=== PATIENT | female | born 1970 | race Caucasian/White ===

== ENCOUNTER → 2019-10-24 09:35 | Outpatient (CLI) | payer OTHER, SELFPAY ==
[2019-10-27 07:16] LABS: COVID19 Sendout Not Detected (Not Detected)
== END ==
PROVIDERS: PCP Internal Medicine Geriatric Medicine; Visit Provider Family Medicine
DX: R05 Cough (principal)
CPT/HCPCS: 87635

== ENCOUNTER 2020-09-25 22:04 | Emergency (ER) | payer OTHER, MEDICAID, SELFPAY ==
--- NOTE | 2020-09-25 22:10 | DI.RAD.S_ITS ---
PROCEDURE: XR CHEST 2V INDICATIONS: shortness of breath TECHNIQUE: 2 views of the chest were acquired. COMPARISON: [facility], , CHEST 1 VIEW, 11/05/2017, 21:10. FINDINGS: Surgical changes and devices: None. Lungs and pleura: Mild right basilar atelectasis. Lungs otherwise clear. No pleural effusions or pneumothorax. Mediastinum: Mediastinal contours are normal. Heart size is normal. Bones and chest wall: No suspicious bony abnormalities. Soft tissues appear unremarkable. IMPRESSION: Mild right basilar atelectasis. Comment: Final report is concordant with preliminary interpretation provided by [facility]. Dictated by: Agapito Marquis M.D. on 09/26/2020 at 6:21 Approved by: Agapito Marquis M.D. on 09/26/2020 at 6:22
[2020-09-25 22:11] VITALS: BP 194/107; PULSE 94; RESP 24; TEMP 36.3; O2SAT 97
[2020-09-25 22:46] LABS: COVID19 -Nasal RAPID Negative (Negative)
[2020-09-25 23:00] LABS: Add Manual Diff / Slide Review NO; Basophils Absolute Auto 100 /uL (0-100); Basophils Percent Auto 0.9 % (0-2); Eosinophils Absolute Auto 300 /uL (0-450); Eosinophils Percent Auto 3.1 % (2-4); Hematocrit 40.5 % (36-46); Hemoglobin 13.2 g/dL (12.0-16.0); Lymphocytes Absolute Auto 2500 /uL (1100-4500); Lymphocytes Percent Auto 26.2 % (25-40); Mean Corpuscular HGB Conc 32.6 % (30-36); Mean Corpuscular Hemoglobin 27.3 PG (26-34); Mean Corpuscular Volume 83.7 fL (80-100); Monocytes Absolute Auto 700 /uL (0-900); Monocytes Percent Auto 7.3 % (3-14); Neutrophils Absolute Auto 5900 /uL (1500-7000); Neutrophils Percent Auto 62.5 % (50-75); Platelet Count 320 X10^3/uL (150-400); Red Blood Cell Count 4.84 X10^6/uL (4.0-5.2); Red Cell Distribution Width 15.5 % (11.6-14.8); White Blood Cell Count 9.4 X10^3/uL (4.5-11.0)
[2020-09-25 23:08] VITALS: PULSE 79; RESP 16; O2SAT 100
[2020-09-25 23:08] LABS: Alanine Aminotransferase 20 IU/L (<35); Albumin 4.4 g/dL (3.5-5.0); Albumin Globulin Ratio 1.4 (1.0-2.8); Alkaline Phosphatase 143 U/L (38-126); Aspartate Aminotransferase 19 IU/L (14-36); Bilirubin Total 0.3 mg/dL (0.2-1.3); Blood Urea Nitrogen 18 mg/dL (7-17); Calcium 9.4 mg/dL (8.4-10.2); Carbon Dioxide 29 mmol/L (22-32); Chloride 106 mmol/L (98-107); Estimated Glomerular Filt Rate > 60.0 mL/min (>60); Globulin 3.2 g/dL (1.7-4.1); Glucose 127 mg/dL (70-100); HEMOLYSIS < 15 (0-50); Lactate (Lactic Acid) 1.3 mmol/L (0.7-2.1); Potassium 3.8 mmol/L (3.4-5.1); Sodium 140 mmol/L (137-145); Total Protein 7.6 g/dL (6.3-8.2)
[2020-09-25 23:30] VITALS: PULSE 79; RESP 30; O2SAT 96
[2020-09-25 23:31] LABS: Appearance Urine UA CLEAR; Bilirubin Urine UA NEGATIVE (NEGATIVE); Color Urine UA YELLOW; Glucose Urine UA 2+ g/dL (Negative); Ketones Urine UA NEGATIVE (NEGATIVE); Leukocyte Esterase Urine UA NEGATIVE (NEGATIVE); Nitrite Urine UA NEGATIVE (Negative); Occult Blood Urine UA NEGATIVE (Negative); Protein Urine UA NEGATIVE (Negative); Specific Gravity Urine UA 1.015 (1.000-1.035); Urobilinogen Urine UA 0.2 E.U./dL (0.2)
[2020-09-25 23:36] LABS: Bacteria Urine Many (>30); RBC Urine 0-1/HPF (0-5/HPF); Squamous Epithelial Cell Urine 1-5 /HPF (0-5/HPF); WBC Urine 0-1/HPF (0-5/HPF)
[2020-09-25 23:37] LABS: Culture Indicated Urine Cult Not Indicated
--- NOTE | 2020-09-25 23:55 | ED_ITS ---
HPI - SOB/Dyspnea General Chief Complaint: Shortness of Breath/Dyspnea Stated Complaint: COUGH SOB BODY ACHES HEADACHE RASH Time Seen by Provider: 09/25/20 23:35 Source: patient Mode of arrival: Ambulatory Limitations: no limitations History of Present Illness HPI Narrative: This is a 50-year-old female comes emergency department with complaint of a rash that started 2 days ago. Patient states this is not atypica l she has a history of Sjogren's and will get rashes intermittently. This evening she started feeling under the weather. She felt cold and achy she had joint pain all over. Developed headache and a cough. Patient states she has not had a productive cough. She states this feels different than her typical asthma. She does have some chest discomfort anteriorly that does not radiate. She states this all started about 7:00 a.m. this evening. Patient does feel little short of breath. She denies any nausea no vomiting. She has had some mild swelling bilateral lower extremities. No abdominal pain. 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 She states she has had tonsillectomy, adenoids, hysterectomy and cholecystectomy. Her PCP is Dr. 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 Related Data Home Medications Medication Instructions Recorded Confirmed ASCORBIC ACID (VITAMIN C) #0 02/13/13 10/24/19 cholecalciferol (vitamin D3) 1,000 unit PO QDAY #0 02/13/13 10/24/19 [Vitamin D3] cetirizine 10 mg PO QDAY #0 08/26/17 10/24/19 meloxicam [Mobic] 15 mg PO QAM #0 08/26/17 10/24/19 folic acid 10 mg PO QDAY #0 08/27/17 10/24/19 naproxen sodium [Aleve] 1 tab PO BID #0 08/27/17 10/24/19 omega [id number]-fish oil [Fish Oil] 1,000 mg PO QDAY #0 08/27/17 10/24/19 propranolol 80 mg PO HS #0 08/27/17 10/24/19 budesonide 1 mg/2 mL suspension 1 mg INHALATION DAILY 10/24/19 10/24/19 for nebulization furosemide 40 mg tablet 40 mg PO BID 10/24/19 10/24/19 gabapentin 300 mg capsule 300 mg PO BID 10/24/19 10/24/19 leflunomide 10 mg tablet 10 mg PO DAILY 10/24/19 10/24/19 metformin 500 mg tablet 1,000 mg PO BID tab 10/24/19 10/24/19 montelukast 10 mg tablet 10 mg PO BEDTIME 10/24/19 10/24/19 pilocarpine HCl 5 mg tablet 5 mg PO TID 10/24/19 10/24/19 pramipexole 0.5 mg tablet 0.5 mg PO DAILY 10/24/19 10/24/19 Previous Rx's Medication Instructions Recorded ALBUTEROL SULFATE (PROAIR HFA) 2 puff INH Q4HP #2 06/27/11 codeine-guaifenesin [Guaifenesin 5 ml PO Q4HP PRN #120 ml 08/29/17 AC] prednisone 60 mg PO QDAY #60 tab 08/29/17 ranitidine HCl 150 mg PO BIDP PRN #60 tab 08/29/17 prednisone 20 mg tablet See Rx Instructions PO DAILY #30 10/25/19 tab codeine-guaifenesin 10 ml PO Q6H PRN #118 ml 09/26/20 prednisone 50 mg PO DAILY #4 tab 09/26/20 Allergies Allergy/AdvReac Type Severity Reaction Status Date / Time lisinopril [LISINOPRIL] Allergy Severe Anaphylaxis Verified 09/26/20 00:49 methotrexate [METHOTREXATE] Allergy Intermediate NAUSEA AND Unverified 10/24/19 09:11 VOMITING adhesive [ADHESIVE] Allergy Unknown ALLERGY TO Unverified 10/24/19 09:11 TAPE erythromycin base Allergy Unknown Unverified 10/24/19 09:11 [ERYTHROMYCIN BASE] latex [LATEX] Allergy Unknown Unverified 10/24/19 09:11 morphine [MORPHINE] Allergy Unknown HIVES Unverified 10/24/19 09:11 Penicillins [PENICILLINS] Allergy Unknown Unverified 10/24/19 09:11 Sulfa (Sulfonamide Allergy Unknown Unverified 10/24/19 09:11 Antibiotics) [SULFA (SULFONAMIDE ANTIBIOTICS)] tetracycline [TETRACYCLINE] Allergy Unknown Unverified 10/24/19 09:11 venom-honey bee Allergy Unknown Unverified 10/24/19 09:11 [BEE VENOM (HONEY BEE)] Review of Systems Review of Systems ROS Unobtainable: All systems reviewed & are unremarkable except as noted in HPI and below Patient History Social History Smoking Status: Former smoker Smoking Status: Former smoker Exam Narrative Exam Narrative: GEN: Obese, well-appearing female, alert and oriented x 3, patient appears to be in mild distress. HEENT: Atraumatic, pupils are equal round reactive to light, extraocular movements are intact. HEART: Regular rate and rhythm without murmur, clicks, rubs. No edema bilateral lower extremities. No JVD. LUNGS:Lungs clear to auscultation, no wheezes, rales, crackles, chest moves symmetrically, no tachypnea. Patient does have a dry cough throughout examination. ABD:bowel sounds normal, soft, non-tender, no guarding, rebound, rigidity, no masses noted, no hepatosplenomegaly :No CVA tenderness MSCL: Non-tender, no muscle atrophy, muscles strength 5/5 upper and lower extremities, full range of motion, normal gait NEURO:CN 2-12 intact, sensation normal SKIN: No rash, erythema other cheek skin changes noted. Initial Vital Signs Initial Vital Signs: Vital Signs Temperature 97.4 F L 09/25/20 22:11 Pulse Rate 94 H 09/25/20 22:11 Respiratory Rate 24 09/25/20 22:11 Blood Pressure 194/107 H 09/25/20 22:11 Pulse Oximetry 97 09/25/20 22:11 Course Orders Ordered: ED Orders 09/25/20 22:10 XR chest 2V Stat EKG-12 Lead Stat Measure peak expiratory flow ONCE RT Consult Eval and Treat Now 09/25/20 22:25 COVID19 Stat 09/25/20 22:43 Complete Blood Count AUTO DIFF Stat Comprehensive Metabolic Panel Stat Lactate (Lactic Acid) Stat 09/25/20 23:00 Influenza A & B (PCR) Stat 09/25/20 23:10 Urinalysis and Microscopic Stat 09/26/20 00:15 Troponin & CK Cardiac Panel Stat 09/26/20 00:41 NT-proBNP (BNP-Adult 18+) Stat Discontinued Medications Acetaminophen (Acetaminophen 325 Mg Tablet) 975 mg PO NOW ONE Stop: 09/26/20 00:16 Last Admin: 09/26/20 00:23 Dose: 975 mg Documented by: JOE Acetaminophen/Codeine Phosphate (Codeine/Apap 30/300 Prepack) 1 bottle MISC SEEINSTR ONE Stop: 09/26/20 01:35 Last Admin: 09/26/20 01:43 Dose: 1 bottle Documented by: JOE Albuterol (Albuterol Hfa Mdi 60 Puff/8 Gm Inhaler) 2 puff INH NOW ONE Stop: 09/26/20 00:16 Last Admin: 09/26/20 00:23 Dose: 2 puff Documented by: JOE Methylprednisolone (Methylprednisolone 125 Mg/2 Ml Vial) 125 mg IV NOW ONE Stop: 09/26/20 00:42 Last Admin: 09/26/20 00:48 Dose: 125 mg Documented by: JOE Reevaluation(s) Reevaluation #1: patient has some mild improvement after albuterol. Time: 01:38 Vital Signs Vital signs: Vital Signs - 8 hr 09/25/20 22:11 09/25/20 23:08 09/25/20 23:30 Temperature 97.4 F L Pulse Rate 94 H 79 79 Respiratory Rate 24 16 30 H Blood Pressure 194/107 H Pulse Oximetry 97 100 96 09/26/20 00:00 09/26/20 00:30 09/26/20 01:00 Temperature Pulse Rate 74 71 75 Respiratory Rate 27 H 35 H 26 H Blood Pressure Pulse Oximetry 97 94 96 09/26/20 01:20 09/26/20 01:47 Temperature Pulse Rate 71 62 Respiratory Rate 21 22 Blood Pressure 140/82 133/59 L Pulse Oximetry 95 95 MDM - SOB/Dyspnea Lab Data Attestation: I reviewed the patient's lab results. Result diagrams: 09/25/20 22:43 09/25/20 22:43 Labs: Lab Results 09/25/20 09/25/20 09/25/20 Range/Units 22:25 22:43 22:43 WBC 9.4 (4.5-11.0) X10^3/uL RBC 4.84 (4.0-5.2) X10^6/uL Hgb 13.2 (12.0-16.0) g/dL Hct 40.5 (36-46) % MCV 83.7 (80-100) fL MCH 27.3 (26-34) PG MCHC 32.6 (30-36) % RDW 15.5 H (11.6-14.8) % Plt Count 320 (150-400) X10^3/uL Neut % (Auto) 62.5 (50-75) % Lymph % (Auto) 26.2 (25-40) % [place] % (Auto) 7.3 (3-14) % Eos % (Auto) 3.1 (2-4) % Baso % (Auto) 0.9 (0-2) % Neut # (Auto) 5900 (1646-2198) /uL Lymph # (Auto) 2500 (7684-9870) /uL [place] # (Auto) 700 (0-900) /uL Eos # (Auto) 300 (0-450) /uL Baso # (Auto) 100 (0-100) /uL Sodium 140 (137-145) mmol/L Potassium 3.8 (3.4-5.1) mmol/L Chloride 106 (98-107) mmol/L Carbon Dioxide 29 (22-32) mmol/L BUN 18 H (7-17) mg/dL Creatinine 0.62 (0.52-1.04) mg/dL Estimated GFR > 60.0 (>60) mL/min BUN/Creatinine Ratio 29.0 H (6-22) Glucose 127 H (70-100) mg/dL Lactate (0.7-2.1) mmol/L Calcium 9.4 (8.4-10.2) mg/dL Total Bilirubin 0.3 (0.2-1.3) mg/dL AST 19 (14-36) IU/L ALT 20 (<35) IU/L Alkaline Phosphatase 143 H (38-126) U/L Total Creatine Kinase (30-135) U/L CK-MB (CK-2) CK-MB (CK-2) Rel Index Troponin I (0.01-0.034) ng/mL NT-Pro-B Natriuret Pep (<125) pg/mL Total Protein 7.6 (6.3-8.2) g/dL Albumin 4.4 (3.5-5.0) g/dL Globulin 3.2 (1.7-4.1) g/dL Albumin/Globulin Ratio 1.4 (1.0-2.8) Urine Color Urine Appearance Urine pH (4.5-8.0) Ur Specific [place] (1.000-1.035) Urine Protein (Negative) Urine Glucose (UA) (Negative) g/dL Urine Ketones (NEGATIVE) Urine Occult Blood (Negative) Urine Nitrate (Negative) Urine Bilirubin (NEGATIVE) Urine Urobilinogen (0.2) E.U./dL Ur Leukocyte Esterase (NEGATIVE) Urine RBC (0-5/HPF) Urine WBC (0-5/HPF) Ur Squamous Epith Cells (0-5/HPF) Urine Bacteria (None) Ur Culture Indicated? SARS-CoV-2 (PCR) Negative (Negative) Influenza A (RT-PCR) (NEGATIVE) Influenza B (RT-PCR) (NEGATIVE) 09/25/20 09/25/20 09/25/20 Range/Units 22:43 22:43 22:43 WBC (4.5-11.0) X10^3/uL RBC (4.0-5.2) X10^6/uL Hgb (12.0-16.0) g/dL Hct (36-46) % MCV (80-100) fL MCH (26-34) PG MCHC (30-36) % RDW (11.6-14.8) % Plt Count (150-400) X10^3/uL Neut % (Auto) (50-75) % Lymph % (Auto) (25-40) % [place] % (Auto) (3-14) % Eos % (Auto) (2-4) % Baso % (Auto) (0-2) % Neut # (Auto) (4139-1692) /uL Lymph # (Auto) (1829-6073) /uL [place] # (Auto) (0-900) /uL Eos # (Auto) (0-450) /uL Baso # (Auto) (0-100) /uL Sodium (137-145) mmol/L Potassium (3.4-5.1) mmol/L Chloride (98-107) mmol/L Carbon Dioxide (22-32) mmol/L BUN (7-17) mg/dL Creatinine (0.52-1.04) mg/dL Estimated GFR (>60) mL/min BUN/Creatinine Ratio (6-22) Glucose (70-100) mg/dL Lactate 1.3 (0.7-2.1) mmol/L Calcium (8.4-10.2) mg/dL Total Bilirubin (0.2-1.3) mg/dL AST (14-36) IU/L ALT (<35) IU/L Alkaline Phosphatase (38-126) U/L Total Creatine Kinase 49 (30-135) U/L CK-MB (CK-2) TNP CK-MB (CK-2) Rel Index TNP Troponin I < 0.012 (0.01-0.034) ng/mL NT-Pro-B Natriuret Pep 58 (<125) pg/mL Total Protein (6.3-8.2) g/dL Albumin (3.5-5.0) g/dL Globulin (1.7-4.1) g/dL Albumin/Globulin Ratio (1.0-2.8) Urine Color Urine Appearance Urine pH (4.5-8.0) Ur Specific [place] (1.000-1.035) Urine Protein (Negative) Urine Glucose (UA) (Negative) g/dL Urine Ketones (NEGATIVE) Urine Occult Blood (Negative) Urine Nitrate (Negative) Urine Bilirubin (NEGATIVE) Urine Urobilinogen (0.2) E.U./dL Ur Leukocyte Esterase (NEGATIVE) Urine RBC (0-5/HPF) Urine WBC (0-5/HPF) Ur Squamous Epith Cells (0-5/HPF) Urine Bacteria (None) Ur Culture Indicated? SARS-CoV-2 (PCR) (Negative) Influenza A (RT-PCR) (NEGATIVE) Influenza B (RT-PCR) (NEGATIVE) 09/25/20 09/25/20 Range/Units 23:00 23:10 WBC (4.5-11.0) X10^3/uL RBC (4.0-5.2) X10^6/uL Hgb (12.0-16.0) g/dL Hct (36-46) % MCV (80-100) fL MCH (26-34) PG MCHC (30-36) % RDW (11.6-14.8) % Plt Count (150-400) X10^3/uL Neut % (Auto) (50-75) % Lymph % (Auto) (25-40) % [place] % (Auto) (3-14) % Eos % (Auto) (2-4) % Baso % (Auto) (0-2) % Neut # (Auto) (9386-8587) /uL Lymph # (Auto) (0349-1894) /uL [place] # (Auto) (0-900) /uL Eos # (Auto) (0-450) /uL Baso # (Auto) (0-100) /uL Sodium (137-145) mmol/L Potassium (3.4-5.1) mmol/L Chloride (98-107) mmol/L Carbon Dioxide (22-32) mmol/L BUN (7-17) mg/dL Creatinine (0.52-1.04) mg/dL Estimated GFR (>60) mL/min BUN/Creatinine Ratio (6-22) Glucose (70-100) mg/dL Lactate (0.7-2.1) mmol/L Calcium (8.4-10.2) mg/dL Total Bilirubin (0.2-1.3) mg/dL AST (14-36) IU/L ALT (<35) IU/L Alkaline Phosphatase (38-126) U/L Total Creatine Kinase (30-135) U/L CK-MB (CK-2) CK-MB (CK-2) Rel Index Troponin I (0.01-0.034) ng/mL NT-Pro-B Natriuret Pep (<125) pg/mL Total Protein (6.3-8.2) g/dL Albumin (3.5-5.0) g/dL Globulin (1.7-4.1) g/dL Albumin/Globulin Ratio (1.0-2.8) Urine Color Yellow Urine Appearance Clear Urine pH 5.0 (4.5-8.0) Ur Specific [place] 1.015 (1.000-1.035) Urine Protein Negative (Negative) Urine Glucose (UA) 2+ H (Negative) g/dL Urine Ketones Negative (NEGATIVE) Urine Occult Blood Negative (Negative) Urine Nitrate Negative (Negative) Urine Bilirubin Negative (NEGATIVE) Urine Urobilinogen 0.2 (0.2) E.U./dL Ur Leukocyte Esterase Negative (NEGATIVE) Urine RBC 0-1/hpf (0-5/HPF) Urine WBC 0-1/hpf (0-5/HPF) Ur Squamous Epith Cells 1-5 /hpf (0-5/HPF) Urine Bacteria Many (>30) H (None) Ur Culture Indicated? Cult not indicated SARS-CoV-2 (PCR) (Negative) Influenza A (RT-PCR) Flu a negative (NEGATIVE) Influenza B (RT-PCR) Flu b negative (NEGATIVE) Point of Care Testing Test Results Negative Urine Dip Bedside Urine Glucose 1000 mg/dl Bedside Urine Bilirubin - Negative Bedside Urine Ketone - Negative Urine Specific [place] 1.020 Bedside Urine Occult Blood - Negative Bedside Urine pH 6 Bedside Urine Protein - Negative Bedside Urine Urobilinogen - Negative Bedside Urine Nitrite - Negative Bedside Urine Leukocytes - Negative Esterase Imaging Data Chest x-ray: Radiologist's Impression: Mild right basilar atelectatic change. No consolidation or pleural effusion. ECG Data Attestation: I personally reviewed and interpreted this ECG as follows: Prior ECG tracings: available for review Interpretation: Sinus rhythm rate of 73 AK 186 QRS 86 and QTC of 425. No acute ST elevation appreciated. Patient has Q-wave in 1 aVL which appears similar. Nonspecific change which appears similar to priors. MDM Narrative Medical decision making narrative: This is a 50-year-old female comes emergency department complaint of cough and generally feeling unwell with some shortness of breath and chest discomfort. Patient states symptoms started about 6 or 7:00 pm this evening. Her EKG shows no acute changes. She is 5 hours out from her initial onset of symptoms with negative troponin, negative BNP and no acute chest x-ray findings. Patient was initially hypertensive but improved during her stay without intervention. Patient does have a dry cough which is mildly improved with albuterol but not resolved. She was not wheezy on exam. She does have a history of asthma as well as Sjogren's and noted recent rash and inc reasing discomfort in her joints and suspect she may be having some autoimmune symptoms. Her labs otherwise do not feel any acute causes. Her urine shows bacteria but has several epithelial cells, she is also not having any UTI type symptoms. We did discuss that she is very early in her symptoms less than 12 hours so she should be retested if she continues to have fevers or symptoms. Influenza was also negative. At this time plan to treat as a bronchitis with steroids, albuterol as needed and codeine for cough prn. Discharge Plan Departure Patient Disposition: Home Clinical Impression: Cough Instructions: DI for Acute Bronchitis Activity Restrictions/Additional Instructions: Follow up with your physician in the next 2-3 days for recheck. Take steroids once daily until gone. You may take codeine/guaifenesin 10mL every 6 hours as needed for cough. Prescription was sent to [facility] in [place]. Continue home medications as prescribed. Return to the ER for fevers, worsening chest pain, shortness of breath, lightheadedness or passing out, persistent vomiting, worsening swelling of your extremities or other new or concerning symptoms. Prescriptions: New prednisone 50 mg tablet 50 mg PO DAILY Qty: 4 RF: 0 codeine-guaifenesin 10-100 mg/5 mL liquid 10 ml PO Q6H PRN (Reason: cough) Qty: 118 RF: 0 No Action pilocarpine HCl 5 mg tablet 5 mg PO TID RF: 0 leflunomide 10 mg tablet 10 mg PO DAILY RF: 0 budesonide [Pulmicort] 1 mg/2 mL suspension for nebulization 1 mg INHALATION DAILY RF: 0 montelukast 10 mg tablet 10 mg PO BEDTIME RF: 0 gabapentin 300 mg capsule 300 mg PO BID RF: 0 metformin 500 mg tablet 1,000 mg PO BID RF: 0 furosemide 40 mg tablet 40 mg PO BID RF: 0 pramipexole 0.5 mg tablet 0.5 mg PO DAILY RF: 0 ALBUTEROL SULFATE (PROAIR HFA) 2 puff INH Q4HP Qty: 2 RF: 0 ASCORBIC ACID (VITAMIN C) Qty: 0 RF: 0 cholecalciferol (vitamin D3) [Vitamin D3] 400 UNIT tablet,chewable 1,000 unit PO QDAY Qty: 0 RF: 0 meloxicam [Mobic] 15 MG tablet 15 mg PO QAM Qty: 0 RF: 0 cetirizine 10 MG tablet 10 mg PO QDAY Qty: 0 RF: 0 omega 4-jcl-kku-fish oil [Fish Oil] 1,000 MG capsule 1,000 mg PO QDAY Qty: 0 RF: 0 folic acid 0.8 MG tablet 10 mg PO QDAY Qty: 0 RF: 0 propranolol 80 MG tablet 80 mg PO HS Qty: 0 RF: 0 naproxen sodium [Aleve] 220 MG tablet 1 tab PO BID Qty: 0 RF: 0 ranitidine HCl 150 MG tablet 150 mg PO BIDP PRNQty: 60 RF: 0 prednisone 10 MG tablet 60 mg PO QDAY Qty: 60 RF: 0 codeine-guaifenesin [Guaifenesin AC] 473 ML liquid 5 ml PO Q4HP PRNQty: 120 RF: 0 prednisone 20 mg tablet See Rx Instructions PO DAILY Qty: 30 RF: 0 Referrals: Snehal Rice MD [Primary Care Provider] -
[2020-09-26] VITALS: PULSE 74; RESP 27; O2SAT 97
[2020-09-26] MEDS: ALBUTEROL HFA MDI 60 PUFF/8 GM INHALER INH (00:23)
[2020-09-26] MEDS: ACETAMINOPHEN 325 MG TABLET 975 MG PO (00:23)
[2020-09-26 00:27] LABS: Influenza A - CEPHEID Flu A NEGATIVE (NEGATIVE); Influenza B - CEPHEID Flu B NEGATIVE (NEGATIVE)
[2020-09-26 00:30] VITALS: PULSE 71; RESP 35; O2SAT 94
[2020-09-26 00:42] LABS: Creatine Kinase 49 U/L (30-135)
[2020-09-26] MEDS: methylPREDNISolone 125 MG/2 ML VIAL IV (00:48)
[2020-09-26 00:55] LABS: Troponin I < 0.012 ng/mL (0.01-0.034)
[2020-09-26 01:00] VITALS: PULSE 75; RESP 26; O2SAT 96
[2020-09-26 01:08] LABS: NT-proBNP (BNP-Adult 18+) 58 pg/mL (<125)
[2020-09-26 01:20] VITALS: BP 140/82; PULSE 71; RESP 21; O2SAT 95
[2020-09-26] MEDS: CODEINE/APAP 30/300 PREPACK 1 BOTTLE MISC (01:43)
[2020-09-26 01:47] VITALS: BP 133/59; PULSE 62; RESP 22; O2SAT 95
== END 2020-09-26 01:48 | disposition home or self-care (01) ==
PROVIDERS: Emergency Provider Emergency Medicine; PCP Internal Medicine Geriatric Medicine
DX: R05 Cough (principal); R51.9 Headache, unspecified; E66.9 Obesity, unspecified; Z20.822 Contact with and (suspected) exposure to COVID-19
CPT/HCPCS: 36415; 71046; 80053; 81001; 81003; 81025; 82550; 83605; 83880; 84484; 85025; 87502; 87635; 93005; 96374; 99283; 99284; C9803; A9270; J2930

== ENCOUNTER 2021-02-27 20:19 | Emergency (ER) | payer OTHER, MEDICAID, SELFPAY ==
[2021-02-27] VITALS (8 sets, daily range): BP systolic 139–183; BP diastolic 70–97; PULSE 71–80; RESP 16–28; TEMP 36.5; O2SAT 93–97; BMI 56.4
[2021-02-27 21:07] LABS: Add Manual Diff / Slide Review NO; Basophils Absolute Auto 300 /uL (0-100); Eosinophils Absolute Auto 300 /uL (0-450); Eosinophils Percent Auto 2.1 % (2-4); Hematocrit 41.7 % (36-46); Hemoglobin 13.6 g/dL (12.0-16.0); Lymphocytes Absolute Auto 3600 /uL (1100-4500); Mean Corpuscular HGB Conc 32.6 % (30-36); Mean Corpuscular Hemoglobin 27.6 PG (26-34); Mean Corpuscular Volume 84.4 fL (80-100); Monocytes Absolute Auto 900 /uL (0-900); Monocytes Percent Auto 6.6 % (3-14); Neutrophils Absolute Auto 8000 /uL (1500-7000); Neutrophils Percent Auto 61.3 % (50-75); Platelet Count 254 X10^3/uL (150-400); Red Blood Cell Count 4.94 X10^6/uL (4.0-5.2)
[2021-02-27] MEDS: ONDANSETRON 4 MG/2 ML INJ IV (21:32)
[2021-02-27 21:46] LABS: Alanine Aminotransferase 25 IU/L (<35); Albumin Globulin Ratio 1.3 (1.0-2.8); Alkaline Phosphatase 125 U/L (38-126); Aspartate Aminotransferase 25 IU/L (14-36); BUN Creatinine Ratio 26.8 (6-22); Bilirubin Total 0.3 mg/dL (0.2-1.3); Blood Urea Nitrogen 15 mg/dL (7-17); Carbon Dioxide 25 mmol/L (22-32); Chloride 107 mmol/L (98-107); Estimated Glomerular Filt Rate > 60.0 mL/min (>60); Glucose 117 mg/dL (70-100); HEMOLYSIS 17 (0-50); Potassium 3.4 mmol/L (3.4-5.1); Sodium 140 mmol/L (137-145)
--- NOTE | 2021-02-27 22:26 | ED_ITS ---
HPI - GI Bleed General Chief complaint: GI Bleed Stated complaint: blood in urine and stools Time Seen by Provider: 02/27/21 22:25 Source: patient Mode of arrival: Ambulatory Limitations: no limitations History of Present Illness HPI Narrative: This is a 50-year-old female who arrives with complaint of dark reddish blood in the stool. Patient had 2 episodes today. Patient states that she has not had any fevers. She has had some mild nausea. She denies any pain with bowel movements or abdominal pain. She has felt a little lightheaded. No chest pain, no shortness of breath. She has not had any vomiting. She has had normal soft stools without any diarrhea or constipation. She denies any urinary symptoms. Patient denies any vaginal bleeding or discharge. Patient does take meloxicam daily. She has a history of cholecystectomy for stones with possible rupture. She also history of hysterectomy secondary to bleeding and anemia. She has multiple medical allergies. She denies any new allergies in comparison to her old. No tobacco, alcohol or illicit. She is accompanied by her gszqul-qy-yvl today. Her primary care is Dr. Rice. She does follow with cardiology for an enlarged aorta. She sees Dr. Baldwin for this and Dr. Manzano with rheumatology at [facility]. Related Data Home Medications Medication Instructions Recorded Confirmed ASCORBIC ACID (VITAMIN C) #0 02/13/13 10/24/19 cholecalciferol (vitamin D3) 10 1,000 unit PO QDAY #0 02/13/13 10/24/19 mcg (400 unit) chewable tablet (Vitamin D3) cetirizine 10 mg tablet 10 mg PO QDAY #0 08/26/17 10/24/19 meloxicam 15 mg tablet (Mobic) 15 mg PO QAM #0 08/26/17 10/24/19 folic acid 800 mcg tablet 10 mg PO QDAY #0 08/27/17 10/24/19 naproxen sodium 220 mg tablet 1 tab PO BID #0 08/27/17 10/24/19 (Aleve) omega 1-faz-bhu-fish oil 1,000 mg 1,000 mg PO QDAY #0 08/27/17 10/24/19 (120 mg-180 mg) capsule (Fish Oil) propranolol 80 mg tablet 80 mg PO HS #0 08/27/17 10/24/19 budesonide 1 mg/2 mL suspension 1 mg INHALATION DAILY 10/24/19 10/24/19 for nebulization (Pulmicort) furosemide 40 mg tablet 40 mg PO BID 10/24/19 10/24/19 gabapentin 300 mg capsule 300 mg PO BID 10/24/19 10/24/19 leflunomide 10 mg tablet 10 mg PO DAILY 10/24/19 10/24/19 metformin 500 mg tablet 1,000 mg PO BID tab 10/24/19 10/24/19 montelukast 10 mg tablet 10 mg PO BEDTIME 10/24/19 10/24/19 pilocarpine HCl 5 mg tablet 5 mg PO TID 10/24/19 10/24/19 pramipexole 0.5 mg tablet 0.5 mg PO DAILY 10/24/19 10/24/19 Previous Rx's Medication Instructions Recorded ALBUTEROL SULFATE (PROAIR HFA) 2 puff INH Q4HP #2 06/27/11 codeine 10 mg-guaifenesin 100 mg/5 5 ml PO Q4HP PRN #120 ml 08/29/17 mL oral liquid (Guaifenesin AC) prednisone 10 mg tablet 60 mg PO QDAY #60 tab 08/29/17 ranitidine HCl 150 mg tablet 150 mg PO BIDP PRN #60 tab 08/29/17 prednisone 20 mg tablet See Rx Instructions PO DAILY #30 10/25/19 tab codeine 10 mg-guaifenesin 100 mg/5 10 ml PO Q6H PRN #118 ml 09/26/20 mL oral liquid prednisone 50 mg tablet 50 mg PO DAILY #4 tab 09/26/20 hydrocodone 5 mg-acetaminophen 325 1 tab PO Q6H PRN #7 tab 02/27/21 mg tablet nitrofurantoin 100 mg PO BID #20 cap 02/27/21 monohydrate/macrocrystals 100 mg capsule (Macrobid) Allergies Allergy/AdvReac Type Severity Reaction Status Date / Time lisinopril [LISINOPRIL] Allergy Severe Anaphylaxis Verified 09/26/20 00:49 methotrexate [METHOTREXATE] Allergy Intermediate NAUSEA AND Unverified 10/24/19 09:11 VOMITING adhesive [ADHESIVE] Allergy Unknown ALLERGY TO Unverified 10/24/19 09:11 TAPE erythromycin base Allergy Unknown Unverified 10/24/19 09:11 [ERYTHROMYCIN BASE] latex [LATEX] Allergy Unknown Unverified 10/24/19 09:11 morphine [MORPHINE] Allergy Unknown HIVES Unverified 10/24/19 09:11 Penicillins [PENICILLINS] Allergy Unknown Unverified 10/24/19 09:11 Sulfa (Sulfonamide Allergy Unknown Unverified 10/24/19 09:11 Antibiotics) [SULFA (SULFONAMIDE ANTIBIOTICS)] tetracycline [TETRACYCLINE] Allergy Unknown Unverified 10/24/19 09:11 venom-honey bee Allergy Unknown Unverified 10/24/19 09:11 [BEE VENOM (HONEY BEE)] Review of Systems Review of Systems ROS Unobtainable: All systems reviewed & are unremarkable except as noted in HPI and below Patient History Social History Smoking Status: Former smoker Smoking Status: Former smoker Substance Use Type: does not use Exam Narrative Exam Narrative: GENERAL: Alert and oriented x three, female with a BMI of 56 in mild distress. HEENT: Head normocephalic, atraumatic, EOMI, pupils reactive, face symmetric, moist mucous membranes NECK: Supple, full range of motion CARDIOVASCULAR: Regular rate and rhythm without murmurs, rubs or gallops. RESPIRATORY: Breath sounds equal bilaterally, no wheezes rales or rhonchi. ABDOMEN: Soft, + tenderness RLQ. Normoactive bowel sounds all 4 quadrants. No guarding or rebound, rigidity, no mass, stool occult is negative but there appear to be a little bit of bright red blood on her underwear near the rectum. : No CVA tenderness EXTREMITIES: Normal range of motion, no clubbing or edema. Neurovascularly intact NEUROLOGICAL: Cranial nerves II through XII grossly intact. Moving all extremities SKIN: Warm, dry, no petechiae, no rashes or lesions. Initial Vital Signs Initial Vital Signs: Vital Signs Temperature 97.7 F 02/27/21 20:20 Pulse Rate 80 02/27/21 20:20 Respiratory Rate 16 02/27/21 20:20 Blood Pressure 183/97 H 02/27/21 20:20 Pulse Oximetry 95 02/27/21 20:20 Course Orders Ordered: ED Orders 02/27/21 20:30 Urine Culture Stat 02/27/21 20:39 EKG-12 Lead Stat 02/27/21 20:54 Complete Blood Count AUTO DIFF Stat Comprehensive Metabolic Panel Stat 02/27/21 21:10 Lipase Stat 02/27/21 22:40 CT abdomen pelvis w con Stat Discontinued Medications Hydrocodone Bitart/Acetaminophen (Hydrocodone/Acet 5/325 Prepack) 1 bottle MISC SEEINSTR ONE Stop: 02/27/21 23:54 Last Admin: 02/28/21 00:18 Dose: 1 bottle Documented by: ROSITA Ketorolac Tromethamine (Ketorolac 30 Mg/Ml Vial) 15 mg IV NOW ONE Stop: 02/27/21 22:42 Last Admin: 02/27/21 22:45 Dose: 15 mg Documented by: ZACH Nitrofurantoin Macrocrystals (Nitrofurantoin 100mg Prepack) 1 bottle MISC SEEINSTR ONE Stop: 02/27/21 23:54 Nitrofurantoin Macrocrystals (Nitrofurantoin Er 100 Mg Capsule) 100 mg PO NOW ONE Stop: 02/28/21 00:09 Last Admin: 02/28/21 00:18 Dose: 100 mg Documented by: ROSITA Ondansetron HCl (Ondansetron 4 Mg/2 Ml Inj) 4 mg IV NOW ONE Stop: 02/27/21 21:25 Last Admin: 02/27/21 21:32 Dose: 4 mg Documented by: ZACH Vital Signs Vital signs: Vital Signs - 8 hr 02/27/21 21:20 02/27/21 21:30 02/27/21 22:00 Pulse Rate 75 79 75 Respiratory Rate 20 27 H Blood Pressure 167/90 H 157/79 H 139/70 Pulse Oximetry 96 96 95 02/27/21 22:30 02/27/21 22:31 02/27/21 23:56 Pulse Rate 76 74 75 Respiratory Rate 28 H 24 Blood Pressure 164/91 H Pulse Oximetry 95 95 97 02/27/21 23:59 02/28/21 00:00 02/28/21 00:02 Pulse Rate 71 70 72 Respiratory Rate Blood Pressure 176/91 H 167/89 H 160/87 H Pulse Oximetry 93 95 95 MDM - GI Bleed Lab Data Result diagrams: 02/27/21 20:54 02/27/21 20:54 Labs: Lab Results 08/07/21 08/07/21 08/07/21 Range/Units 20:54 20:54 21:10 WBC 13.0 H (4.5-11.0) X10^3/uL RBC 4.94 (4.0-5.2) X10^6/uL Hgb 13.6 (12.0-16.0) g/dL Hct 41.7 (36-46) % MCV 84.4 (80-100) fL MCH 27.6 (26-34) PG MCHC 32.6 (30-36) % RDW 15.0 H (11.6-14.8) % Plt Count 254 (150-400) X10^3/uL Neut % (Auto) 61.3 (50-75) % Lymph % (Auto) 28.0 (25-40) % [place] % (Auto) 6.6 (3-14) % Eos % (Auto) 2.1 (2-4) % Baso % (Auto) 2.0 (0-2) % Neut # (Auto) 8000 H (1116-4845) /uL Lymph # (Auto) 3600 (1510-4097) /uL [place] # (Auto) 900 (0-900) /uL Eos # (Auto) 300 (0-450) /uL Baso # (Auto) 300 H (0-100) /uL Sodium 140 (137-145) mmol/L Potassium 3.4 (3.4-5.1) mmol/L Chloride 107 (98-107) mmol/L Carbon Dioxide 25 (22-32) mmol/L BUN 15 (7-17) mg/dL Creatinine 0.56 (0.52-1.04) mg/dL Estimated GFR > 60.0 (>60) mL/min BUN/Creatinine Ratio 26.8 H (6-22) Glucose 117 H (70-100) mg/dL Calcium 9.0 (8.4-10.2) mg/dL Total Bilirubin 0.3 (0.2-1.3) mg/dL AST 25 (14-36) IU/L ALT 25 (<35) IU/L Alkaline Phosphatase 125 (38-126) U/L Total Protein 7.0 (6.3-8.2) g/dL Albumin 4.0 (3.5-5.0) g/dL Globulin 3.0 (1.7-4.1) g/dL Albumin/Globulin Ratio 1.3 (1.0-2.8) Lipase 84 (23-300) U/L Urine Dip Bedside Urine Glucose 1000 mg/dl Bedside Urine Bilirubin - Negative Bedside Urine Ketone - Negative Urine Specific [place] 1.020 Bedside Urine Occult Blood - Negative Bedside Urine pH 6.0 Bedside Urine Protein - Negative Bedside Urine Urobilinogen - Negative Bedside Urine Nitrite - Negative Bedside Urine Leukocytes - Negative Esterase Imaging Data CT scan - abdomen/pelvis: Radiologist's Impression: Probable right pyelonephritis without focal abnormality. Right perinephric stranding noted without focal change. No right renal stone, or ureteral distention. Otherwise unremarkable CT with hysterectomy noted. ECG Data Attestation: I personally reviewed and interpreted this ECG as follows: Prior ECG tracings: available for review Interpretation: Sinus rhythm incomplete right bundle, rate of 74 KS 188 QRS of 98 QTC of 439. No new ST changes appreciated. Patient has prior EKG from 09/25/2020 which appears similar. MDM Narrative Medical decision making narrative: This is a 50-year-old female comes with complaint of blood patient states per rectum on Hemoccult is negative. But patient's urine is also negative. Patient does not complain of any abdominal pain but on exam has tenderness in the right lower quadrant. Patient CT shows possible pyelo, urine is negative but patient is quite tender and with stranding so was started on oral antibiotics and urine sent for culture. White count at 13, otherwise negative renal function, electrolytes and LFTs making possible choledocholithiasis unlikely without any changes to the duct on CT. Discussed with patient plan for follow-up for colonoscopy/EGD she does take meloxicam daily and this is a potential cause of bleeding. Patient has had a hysterectomy as well so making vaginal bleeding less likely. The patient has not appreciated on discussion any vaginal bleeding or spotting. Patient is uncomfortable on examination was given oral antibiotic, short course of pain medication and referral for GI. Discussed return precautions and patient expresses understanding. Discharge Plan Departure Patient Disposition: Home Clinical Impression: GI bleed, Palpitations Instructions: Gastrointestinal Bleeding Activity Restrictions/Additional Instructions: Follow-up with general surgery for colonoscopy. Call for an appointment. Referral is included below. Meloxicam can cause upper GI ulcers and gastric bleeding I would stop this medication for the short term. Your stool occult was negative and your labs today are reassuring. Your imaging does not show any major changes but there is some right stranding on the kidney. Your urine does not show any obvious signs of infection. Take antibiotics until completely gone. You may take pain medication as prescribed. This medication can make you sleepy do not drive, perform hazardous activities or make any major decisions while taking it. This medication will make you constipated please take a stool softener once to twice daily until stools are soft and regular. Please return for fevers, new or worsening abdominal, back or flank pain, persistent vomiting, lightheadedness or passing out, new or worsening bloody stools, rectal pain or other new or concerning symptoms. Prescriptions: New nitrofurantoin monohyd/m-cryst [Macrobid] 100 mg capsule 100 mg PO BID Qty: 20 RF: 0 hydrocodone-acetaminophen 5-325 mg tablet 1 tab PO Q6H PRN (Reason: pain) Qty: 7 RF: 0 No Action pilocarpine HCl 5 mg tablet 5 mg PO TID RF: 0 leflunomide 10 mg tablet 10 mg PO DAILY RF: 0 budesonide [Pulmicort] 1 mg/2 mL suspension for nebulization 1 mg INHALATION DAILY RF: 0 montelukast 10 mg tablet 10 mg PO BEDTIME RF: 0 gabapentin 300 mg capsule 300 mg PO BID RF: 0 metformin 500 mg tablet 1,000 mg PO BID RF: 0 furosemide 40 mg tablet 40 mg PO BID RF: 0 pramipexole 0.5 mg tablet 0.5 mg PO DAILY RF: 0 ALBUTEROL SULFATE (PROAIR HFA) 2 puff INH Q4HP Qty: 2 RF: 0 ASCORBIC ACID (VITAMIN C) Qty: 0 RF: 0 cholecalciferol (vitamin D3) [Vitamin D3] 400 UNIT tablet,chewable 1,000 unit PO QDAY Qty: 0 RF: 0 meloxicam [Mobic] 15 MG tablet 15 mg PO QAM Qty: 0 RF: 0 cetirizine 10 MG tablet 10 mg PO QDAY Qty: 0 RF: 0 omega 9-gtv-pfh-fish oil [Fish Oil] 1,000 MG capsule 1,000 mg PO QDAY Qty: 0 RF: 0 folic acid 0.8 MG tablet 10 mg PO QDAY Qty: 0 RF: 0 propranolol 80 MG tablet 80 mg PO HS Qty: 0 RF: 0 naproxen sodium [Aleve] 220 MG tablet 1 tab PO BID Qty: 0 RF: 0 ranitidine HCl 150 MG tablet 150 mg PO BIDP PRNQty: 60 RF: 0 prednisone 10 MG tablet 60 mg PO QDAY Qty: 60 RF: 0 codeine-guaifenesin [Guaifenesin AC] 473 ML liquid 5 ml PO Q4HP PRNQty: 120 RF: 0 prednisone 20 mg tablet See Rx Instructions PO DAILY Qty: 30 RF: 0 prednisone 50 mg tablet 50 mg PO DAILY Qty: 4 RF: 0 codeine-guaifenesin 10-100 mg/5 mL liquid 10 ml PO Q6H PRN (Reason: cough) Qty: 118 RF: 0 Referrals: Shavonne Slaughter MD [Physician] - Snehal Rice MD [Primary Care Provider] - Stand Alone Forms: Work Release Note
--- NOTE | 2021-02-27 22:40 | DI.CT.S_ITS ---
PROCEDURE: CT ABDOMEN PELVIS W CON INDICATIONS: rectal bleeding, RLQ tenderness TECHNIQUE: After the administration of intravenous contrast, axial sections acquired from the lung bases to the pubic symphysis. Coronal and sagittal reformats were performed. For radiation dose reduction, the following was used: automated exposure control, adjustment of mA and/or kV according to patient size. COMPARISON: None. FINDINGS: Image quality: Excellent. Lung bases: Unremarkable. Heart: No significant findings. ABDOMEN: Liver: Unremarkable. Gallbladder: Surgically absent Biliary ducts: Unremarkable. Pancreas: Unremarkable. Spleen: Unremarkable. Adrenal Glands: Unremarkable. Kidneys and Ureters: Symmetric renal enhancement. No hydronephrosis. Trace right perinephric fat stranding. No hydroureter or urinary calculi.. Stomach and Bowel: The stomach is decompressed. Small bowel loops are within normal limits. There is a normal appendix. Diverticulosis seen in the descending and sigmoid colon. Mild wall thickening of the proximal sigmoid colon diffusely. No pericolonic inflammatory change. Peritoneum: No abnormal intraperitoneal fluid. No free air. Ventral Wall: No hernias. Abdominal Nodes: No retroperitoneal or mesenteric adenopathy by size criteria. Vessels: Aorta and inferior vena cava are normal in size. PELVIS: Pelvic Organs: Surgically absent uterus. Normal ovaries. Bladder: Unremarkable. Pelvic Nodes: No enlarged lymph nodes. Miscellaneous: No hernias are seen. Bones: Unremarkable. IMPRESSION: 1. Diverticulosis with changes in the sigmoid suggesting chronic diverticulitis. 2. Trace right perinephric fat stranding, nonspecific but could be seen in setting of infection. Correlate with UA. 3. Post cholecystectomy. 4. Normal appendix. Dictated by: Shonna Marcial M.D. on 02/28/2021 at 7:21 Approved by: Shonna Marcial M.D. on 02/28/2021 at 7:27
[2021-02-27] MEDS: KETOROLAC 30 MG/ML VIAL 15 MG IV (22:45)
[2021-02-27 22:53] LABS: Lipase 84 U/L (23-300)
[2021-02-28] VITALS: BP 167/89; PULSE 70; O2SAT 95
[2021-02-28 00:02] VITALS: BP 160/87; PULSE 72; O2SAT 95
[2021-02-28] MEDS: HYDROCODONE/ACET 5/325 PREPACK 1 BOTTLE MISC (00:18)
[2021-02-28] MEDS: NITROFURANTOIN ER 100 MG CAPSULE PO (00:18)
== END 2021-02-28 00:30 | disposition home or self-care (01) ==
PROVIDERS: Emergency Provider Emergency Medicine; PCP Internal Medicine Geriatric Medicine
DX: K92.2 Gastrointestinal hemorrhage, unspecified (principal); R00.2 Palpitations; R79.89 Other specified abnormal findings of blood chemistry
CPT/HCPCS: 36415; 74177; 80053; 81003; 83690; 85025; 87086; 93005; 96374; 96375; 99284; J1885; J2405; Q9967

== ENCOUNTER → 2021-04-09 10:20 | Outpatient (CLI) | payer OTHER, MEDICAID, SELFPAY ==
[2021-04-09 11:03] LABS: COVID19 -Nasal RAPID Negative (Negative)
== END ==
PROVIDERS: PCP Internal Medicine Geriatric Medicine; Visit Provider Surgery
DX: Z01.812 Encounter for preprocedural laboratory examination (principal); Z20.822 Contact with and (suspected) exposure to COVID-19
CPT/HCPCS: 87635; C9803

== ENCOUNTER 2021-04-12 09:59 | Day surgery (SDC) | payer OTHER, MEDICAID, SELFPAY ==
[2021-04-04 12:38] VITALS: BP 125/63; PULSE 69; RESP 19; TEMP 36.6; O2SAT 93
[2021-04-12] VITALS (7 sets, daily range): BP systolic 126–161; BP diastolic 61–98; PULSE 59–71; RESP 16–24; TEMP 35.9–36.6; O2SAT 92–98; BMI 54.6
[2021-04-12] MEDS: LACTATED RINGERS 1,000 ML 200 ML IV (11:07)
--- NOTE | 2021-04-12 12:06 | PM.PREOP ---
Pre-operative Note Interval Note History & Physical reviewed/Exam performed by Physician: Yes Changes to H&P: No
[2021-04-12] MEDS: LIDOCAINE 4% SOLN 50 ML 20 ML TOP (12:14)
[2021-04-12] MEDS: MIDAZOLAM 5 MG/5 ML VIAL IV (12:22)
[2021-04-12] MEDS: fentaNYL 250 MCG/5 ML INJ IV (12:26)
--- NOTE | 2021-04-12 12:34 | PM.OP.ENDO ---
Operative Date/Time/Diagnoses Date of procedure: 04/12/21 Time of procedure: 12:34 Pre-op diagnosis: GI bleed Post-op diagnosis: same Procedure & Clinicians Study performed: Esophagoduodenoscopy and colonoscopy Same procedure as scheduled: Yes Indications: Recent hemodynamically stable GI bleed Surgeon: Milton Mcgee Procedure Notes Procedure in detail: Patient placed in left lateral decubitus position. Time out was performed. Procedural sedation was administered with Versed and Fentanyl. A bite block was placed. the scope was inserted into the mouth and advanced through the esophagus and into the stomach. The pylorus was intubated and the duodenum was normal to the 2nd portion. The scope was retroflexed within the stomach and there was a small hiatal hernia. No ulcers, or gastritis. The scope was withdrawn into the esophagus the Z line was seen at 40 cm from the incisions. There was no Boyle's esophagitis or masses or strictures. Stomach was desufflated and scope removed. Examination began with a thorough inspection of the perianal area there was no evidence of fissures, fistulae, external hemorrhoids or cutaneous malignancy. The colonoscopy scope was then placed into the anal canal and was advanced to the cecum, which was identified by the ileocecal valve, the appendiceal orifice and the confluence of the taenia. The scope was then slowly withdrawn examining colon thoroughly in all directions, irrigating it of any residual stool. FINDINGS 1. No masses polyps 2. [place] diverticulosis The patient tolerated the procedure well. They will be discharged once criteria are met. The prep was of good/excellent quality. The withdrawl time was 6 minutes. The sedation time was 20 minutes. Specimen(s): none sent Complications: none Impression: Normal upper and lower endoscopy. Diverticulosis Post-procedure Recommendations: Colonscopy in 10 years Disposition: same day surgery
== END 2021-04-12 14:47 | disposition home or self-care (01) ==
PROVIDERS: PCP Internal Medicine Geriatric Medicine; Referring Provider Surgery; Visit Provider Surgery
PROC: 0DJ08ZZ Inspection of Upper Intestinal Tract, Via Natural or Artificial Opening Endoscopic (ICD-10-PCS; CPT 43235; principal; 2021-04-12 11:30)
PROC: 0DJD8ZZ Inspection of Lower Intestinal Tract, Via Natural or Artificial Opening Endoscopic (ICD-10-PCS; CPT 45378; 2021-04-12 11:30)
DX: K92.2 Gastrointestinal hemorrhage, unspecified (principal); K57.30 Diverticulosis of large intestine without perforation or abscess without bleeding; E11.9 Type 2 diabetes mellitus without complications; J45.909 Unspecified asthma, uncomplicated; G47.33 Obstructive sleep apnea (adult) (pediatric); I10 Essential (primary) hypertension; E78.5 Hyperlipidemia, unspecified; M79.7 Fibromyalgia; Z87.891 Personal history of nicotine dependence; Z79.84 Long term (current) use of oral hypoglycemic drugs
CPT/HCPCS: 43235; 45378; 82962; 99152; J2250; J3010

== ENCOUNTER 2023-02-15 11:12 | Emergency (ER) | payer OTHER, MEDICAID, SELFPAY ==
[2023-02-15] VITALS (126 sets, daily range): BP systolic 93–184; BP diastolic 50–136; PULSE 61–156; RESP 17–121; TEMP 35.8–37.3; O2SAT 85–99; BMI 63.0
--- NOTE | 2023-02-15 11:31 | DI.CT.S_ITS ---
PROCEDURE: CT STROKE INDICATIONS: Left-sided weakness TECHNIQUE: Noncontrast 4.5 mm thick angled axial sections acquired from the foramen magnum to the vertex, with coronal reformats. For radiation dose reduction, the following was used: automated exposure control, adjustment of mA and/or kV according to patient size. COMPARISON: None. FINDINGS: Image quality: Excellent. CSF spaces: Basal cisterns are patent. No extra-axial fluid collections. Ventricles are normal in size and shape. Brain: No midline shift. No intracranial masses or hemorrhage. [place]-white matter interface is normal. Skull and face: Calvarium and visualized facial bones are intact, without suspicious lesions. Sinuses: Visualized sinuses and mastoids are clear. IMPRESSION: No acute intracranial process. Comment: Findings were discussed with Dr. Arreola on 02/15/2023 at 1231 hours This study fulfills neurological imaging criteria for inclusion or exclusion of acute stroke therapies based on available published neurological imaging guidelines. Dictated by: Agapito Marquis M.D. on 02/15/2023 at 12:30 Approved by: Agapito Marquis M.D. on 02/15/2023 at 12:31
--- NOTE | 2023-02-15 11:32 | DI.CT.S_ITS ---
PROCEDURE: CT ANGIO HEAD AND NECK INDICATIONS: Left-sided weakness TECHNIQUE: Noncontrast images were performed earlier in the day and not repeated. After the administration of intravenous contrast, 1 mm thick sections acquired from the aortic arch through the [place] of [place]. Post-contrast 4.5 mm thick sections then re-acquired from the foramen magnum to the vertex. 3-dimensional sgkstxj-pknepdhsl-qzanmxyjir (MIP) and/or volume rendering reformats were acquired of the central intracranial vasculature and neck separately. For radiation dose reduction, the following was used: automated exposure control, adjustment of mA and/or kV according to patient size. COMPARISON: [facility], CT, CT STROKE, 02/15/2023, 12:18. [facility], CT, CT NECK SOFT TISSUE W CON, 03/09/2015, 16:02. FINDINGS: Image quality: This study is limited by body habitus. This examination is somewhat limited by quantum mottle artifact. BRAIN: CSF spaces: Ventricles are normal in size and shape. Basal cisterns are patent. No extra-axial fluid collections. Brain: No midline shift. No intracranial bleeds or masses. [place]-white matter interface appears intact. Skull and face: Calvarium and facial bones appear intact, without suspicious lesions. Orbits appear normal. Sinuses: Sinuses and mastoids are clear. HEAD CT ANGIOGRAPHY: Anterior circulation: Intracranial internal carotid arteries are normal in size and flow. The flow within the paired anterior cerebral arteries is normal and symmetric. The flow within the middle cerebral arteries is normal and symmetric. The anterior communicating artery is seen. No aneurysms are seen. Posterior circulation: Visualized portions of the vertebral arteries demonstrate normal caliber, and join to form a normal appearing basilar artery. Flow within the posterior cerebral arteries is normal and symmetric. No aneurysms are seen. NECK CT ANGIOGRAPHY: Carotid system: The great vessels demonstrate a conventional anatomy as they arise from the aortic arch. The origins of the common carotid arteries appear patent. The common carotid arteries demonstrate normal caliber and courses. The bifurcation regions are both widely patent. The internal carotid arteries demonstrate normal calibers. Tortuosity is seen of the internal carotid arteries. Posterior circulation: The origins of the vertebral arteries both appear widely patent. The more superior extracranial portions of both vertebral arteries also demonstrate normal courses and calibers. They join to form a normal appearing basilar artery. Soft tissues: Visualized neck soft tissues demonstrate no suspicious abnormalities. Bones: No suspicious bony lesions. Visualized cervical spine appears normally aligned. At least moderate cervical spine degenerative change can be seen. IMPRESSION: Within the arteries of the neck, no hemodynamically significant stenosis can be seen. No significant intracranial arterial abnormality is seen. If there is strong clinical suspicion for an acute stroke, please consider a brain MRI for further evaluation, as it is more sensitive (assuming that there is no contraindication to MRI). Any quantitative measurements of stenosis were performed using NASCET criteria. Dictated by: Alexey Nevarez M.D. on 02/15/2023 at 11:57 Approved by: Alexey Nevarez M.D. on 02/15/2023 at 12:00
--- NOTE | 2023-02-15 11:39 | ED.NEUROSD ---
HPI - Neuro Symptoms/Deficit <German Arreola MD - Last Filed: 02/21/23 12:27> General Chief Complaint: Neuro Symptoms/Deficit Stated Complaint: Muscle spasms (tick tremors) Time Seen by Provider: 02/15/23 11:28 Source: patient Mode of arrival: Wheelchair History of Present Illness HPI Narrative: Patient brought here by [id number] for headache and generalized body twitching. No history stroke no history of seizure denies any recent illness denies any new medications. Denies any new stressors in life. Last well known 8:00 a.m. today. Patient is awake alert oriented x4. During course of exam she states her left arm and left leg starting feel week. Code stroke was called. During IV access patient did have a generalized tonic-clonic seizure-like activity however she remained awake and was aware of surroundings. Ativan 2 mg intramuscular was ordered. Patient did remain awake during this episode. On Anticoagulants: No Related Data Home Medications Medication Instructions Recorded Confirmed cetirizine 10 mg tablet 10 mg PO QDAY ##0 08/26/17 02/17/23 omega 0-[id number]-fish oil 1,000 mg 1,000 mg PO QDAY ##0 08/27/17 02/17/23 (120 mg-180 mg) capsule (Fish Oil) leflunomide 10 mg tablet 10 mg PO DAILY 10/24/19 02/17/23 acetaminophen 325 mg capsule 325 mg PO Q4H PRN Pain 03/15/21 02/17/23 albuterol sulfate 90 mcg/actuation 2 puff inhalation Q4-6H PRN Asthma 03/15/21 02/17/23 aerosol inhaler (Proventil HFA) amlodipine 2.5 mg tablet 5 mg PO DAILY 03/15/21 02/17/23 atorvastatin 10 mg tablet 10 mg PO DAILY 03/15/21 02/17/23 calcium carbonate 600 mg-vitamin 1 cap PO DAILY 03/15/21 02/17/23 D3 12.5 mcg (500 unit) capsule (Calcium 600 with Vitamin D3) carboxymethylcellulose sodium 1 % 2 drp EYE-BOTH PRN PRN Dry Eyes 03/15/21 02/17/23 eye drops (Artificial Tears (carboxymethylcellulose)) clobetasol 0.05 % scalp solution 1 applic topical BID 03/15/21 02/17/23 empagliflozin 25 mg tablet 25 mg PO DAILY 03/15/21 02/17/23 (Jardiance) epinephrine 0.3 mg/0.3 mL 0.3 mg IM ONCE PRN Anaphylaxis 03/15/21 02/17/23 injection, auto-injector (EpiPen) fluticasone furoate 50 2 inh inhalation DAILY 03/15/21 02/17/23 mcg/actuation blister powder for inhalation gabapentin 300 mg capsule 300 mg PO TID PRN Pain 03/15/21 02/17/23 ipratropium 0.5 mg-albuterol 3 mg 3 ml inhalation Q4H PRN Asthma 03/15/21 02/17/23 (2.5 mg base)/3 mL nebulization soln ketoconazole 2 % shampoo 1 applic topical 2XW PRN Rash 03/15/21 02/17/23 omeprazole 40 mg capsule,delayed 40 mg PO DAILY 03/15/21 02/17/23 release ondansetron HCl 4 mg tablet 4 mg PO Q8H PRN Nausea 03/15/21 02/17/23 (Zofran) pilocarpine HCl 5 mg tablet 7.5 mg PO TID 03/15/21 02/17/23 (Salagen (pilocarpine)) potassium chloride 10 mEq 10 meq PO BID 03/15/21 02/17/23 tablet,extended release (Klor-Con) propranolol 120 mg capsule,24 120 mg PO QPM 03/15/21 02/17/23 hr,extended release triamcinolone acetonide 0.1 % 1 applic topical BID 03/15/21 02/17/23 topical cream exenatide 5 mcg/dose (250 5 mcg SUBCUT BID 04/12/21 02/17/23 mcg/mL)1.2 mL subcutaneous pen injector (Byetta) propranolol 40 mg tablet 40 mg PO QAM 04/12/21 02/17/23 Allergies Allergy/AdvReac Type Severity Reaction Status Date / Time lisinopril [LISINOPRIL] Allergy Severe Anaphylaxis Verified 02/17/23 07:34 morphine [MORPHINE] Allergy Severe HIVES, Verified 02/17/23 07:34 anaphylaxis Penicillins [PENICILLINS] Allergy Severe Anaphylaxis Verified 02/17/23 07:34 venom-honey bee Allergy Severe Anaphylaxis Verified 02/17/23 07:34 [BEE VENOM (HONEY BEE)] erythromycin base Allergy Intermediate Facial Verified 02/17/23 07:34 [ERYTHROMYCIN BASE] Swelling methotrexate [METHOTREXATE] Allergy Intermediate NAUSEA AND Verified 02/17/23 07:34 VOMITING Sulfa (Sulfonamide Allergy Intermediate Eye Verified 02/17/23 07:34 Antibiotics) swelling [SULFA (SULFONAMIDE ANTIBIOTICS)] hydroxychloroquine Allergy Mild Rash Verified 02/17/23 07:34 latex [LATEX] Allergy Mild Hives Verified 02/17/23 07:34 tetracycline [TETRACYCLINE] Allergy Mild Rash Verified 02/17/23 07:34 adhesive [ADHESIVE] Allergy Unknown ALLERGY TO Verified 02/17/23 07:35 TAPE metformin AdvReac Mild Nausea and Verified 02/17/23 07:35 vomiting Review of Systems <German Arreola MD - Last Filed: 02/21/23 12:27> Review of Systems Narrative: GENERAL: negative chills, fatigue, malaise, fever, sweats. HEENT: negative sinus pain, ear pain, sore throat RESPIRATORY: negative dyspnea, cough CARDIOVASCULAR: negative chest pain, palpitations GASTROINTESTINAL: negative nausea, vomiting, abdominal pain : negative dysuria, frequency, hematuria MUSCULOSKELETAL: negative muscle or bony pain SKIN: negative rash, skin lesions NEUROLOGIC: Positive weakness positive tremors positive headache negative slurred speech negative facial droop negative numbness ROS Unobtainable: All systems reviewed & are unremarkable except as noted in HPI and below Hematologic/Lymphatic On Anticoagulants: No Patient History <German Arreola MD - Last Filed: 02/21/23 12:27> Medical History Asthma Diabetes Edema Fibromyalgia HTN (hypertension) Hyperlipidemia (normal spontaneous vaginal delivery) Sinus tachycardia Sjogren's disease Sleep apnea Surgical History H/O section H/O tubal ligation History of hysterectomy History of tonsillectomy and adenoidectomy Hx of cholecystectomy Family History Mother Hypertension Diabetes mellitus CVA (cerebral vascular accident) Cancer Father Diabetes mellitus Cancer Grandmother Diabetes mellitus Cancer Social History household members: family and children Smoking Status: Former smoker alcohol intake: current Smoking Status: Former smoker alcohol intake frequency: holidays/special occasions only Substance Use Type: does not use Exam <German Arreola MD - Last Filed: 02/21/23 12:27> Narrative Exam Narrative: GENERAL: in no distress, not toxic not dyspneic HEAD: Normocephalic. EYES: Pupils equal round, no photophobia, no papilledema ENT: Mucous membranes moist. NECK: Trachea midline. CARDIOVASCULAR: Regular rate and rhythm without murmurs RESPIRATORY: Clear to auscultation. Breath sounds equal bilaterally. No wheezes, rales, or rhonchi. GASTROINTESTINAL: Abdomen soft, non-tender EXTREMITIES: No gross deformities. BACK: No flank tenderness. NEURO: AOx4. There is bilateral tremors of the legs feet and hands. Patient has twitching of the head and neck. At times patient is redirectable and it does stop. On fast exam patient does have slightly weaker hvac technician on the left compared to the right. Left leg has weak lift off the bed but is able to do very slowly. SKIN: Warm and dry PSYCH: Patient is anxious. However is cooperative. Not combative. Initial Vital Signs Initial Vital Signs: Vital Signs Temperature 97.8 F 02/15/23 11:16 Pulse Rate 70 02/15/23 11:16 Respiratory Rate 22 02/15/23 11:16 Blood Pressure 150/88 H 02/15/23 11:16 Pulse Oximetry 96 02/15/23 11:16 Oxygen Delivery Method Room Air 02/15/23 11:16 <Daly Barajas DO - Last Filed: 02/24/23 01:42> Initial Vital Signs Initial Vital Signs: Vital Signs Temperature 97.8 F 02/15/23 11:16 Pulse Rate 70 02/15/23 11:16 Respiratory Rate 22 02/15/23 11:16 Blood Pressure 150/88 H 02/15/23 11:16 Pulse Oximetry 96 02/15/23 11:16 Oxygen Delivery Method Room Air 02/15/23 11:16 <Alexx Abreu DO - Last Filed: 02/17/23 18:05> Initial Vital Signs Initial Vital Signs: Vital Signs Temperature 97.8 F 02/15/23 11:16 Pulse Rate 70 02/15/23 11:16 Respiratory Rate 22 02/15/23 11:16 Blood Pressure 150/88 H 02/15/23 11:16 Pulse Oximetry 96 02/15/23 11:16 Oxygen Delivery Method Room Air 02/15/23 11:16 Scores <German Arreola MD - Last Filed: 02/21/23 12:27> NIH Stroke Scale Level of Conciousness: Alert, keenly responsive Ask month/age: Answers both questions correctly. Open/close eyes, close hand: Performs both tasks correctly Best gaze horizontal: Normal Visual gross: No visual loss Facial palsy: Normal symetrical movement Left arm drift: Some effort against gravity, cannot maintain, drifts down to bed Right arm drift: No drift for full 10 sec Left leg drift: No effort against gravity Right leg drift: No drift for full 5 sec Limb ataxia: Present in two limbs Sensory on face/arms/legs: Normal, no sensory loss Best language: No aphasia, normal Dysarthria: Normal Extinction or inattention: No abnormality Total NIH Stroke scale score: 7 <Daly Barajas DO - Last Filed: 02/24/23 01:42> NIH Stroke Scale Total NIH Stroke scale score: 7 <Alexx Abreu DO - Last Filed: 02/17/23 18:05> NIH Stroke Scale Total NIH Stroke scale score: 7 Course <German Arreola MD - Last Filed: 02/21/23 12:27> Orders Ordered: Discontinued Medications Amlodipine Besylate (Amlodipine 5 Mg Tablet) 2.5 mg PO DAILY [facility] Last Admin: 02/17/23 08:06 Dose: 2.5 mg Documented By: NICHOLE Docusate Sodium (Docusate 100 Mg Capsule) 100 mg PO NOW ONE Stop: 02/17/23 17:59 Last Admin: 02/17/23 18:04 Dose: 100 mg Documented By: NICHOLE Enoxaparin Sodium (Enoxaparin 40 Mg/0.4 Ml Syringe) 40 mg SUBCUT Q12H [facility] Last Admin: 02/17/23 07:59 Dose: 40 mg Documented By: NICHOLE Levetiracetam 1,000 mg/ Sodium (Chloride) 110 mls @ 440 mls/hr IV NOW ONE Stop: 02/15/23 11:47 Last Infusion: 02/15/23 12:07 Dose: 0 mls/hr Documented By: Admin: 02/15/23 11:52 Dose: 440 mls/hr Documented By: DERRICK Acetaminophen (Ofirmev) 1,000 mg in 100 mls @ 400 mls/hr IV NOW ONE Stop: 02/15/23 13:55 Last Infusion: 02/15/23 14:19 Dose: 0 mls/hr Documented By: Admin: 02/15/23 14:00 Dose: 400 mls/hr Documented By: DAYAN Levetiracetam 1,000 mg/ Sodium (Chloride) 110 mls @ 440 mls/hr IV BID SILVIO Last Infusion: 02/15/23 21:40 Dose: 0 mls/hr Documented By: Admin: 02/15/23 21:23 Dose: 440 mls/hr Documented By: MELECIO Dextrose/Sodium Chloride (Dextrose 5%-0.45% Ns) 1,000 mls @ 125 mls/hr IV CONT SILVIO Last Infusion: 02/17/23 07:30 Dose: 0 mls/hr Documented By: Infusion: 02/16/23 20:21 Dose: 0 mls/hr Documented By: Admin: 02/16/23 17:16 Dose: 125 mls/hr Documented By: Infusion: 02/16/23 15:49 Dose: 125 mls/hr Documented By: Infusion: 02/16/23 14:00 Dose: 125 mls/hr Documented By: Infusion: 02/16/23 11:45 Dose: 0 mls/hr Documented By: Admin: 02/16/23 05:34 Dose: 125 mls/hr Documented By: Infusion: 02/16/23 05:34 Dose: 125 mls/hr Documented By: Infusion: 02/15/23 22:10 Dose: 125 mls/hr Documented By: Infusion: 02/15/23 21:34 Dose: 0 mls/hr Documented By: Admin: 02/15/23 21:34 Dose: 125 mls/hr Documented By: MELECIO Lorazepam (Lorazepam 2 Mg/Ml Inj) 0.5 mg IV NOW ONE Stop: 02/15/23 11:33 Last Admin: 02/15/23 12:38 Dose: Not Given Documented By: DERRICK Lorazepam (Lorazepam 2 Mg/Ml Inj) 2 mg IM NOW ONE Stop: 02/15/23 11:48 Last Admin: 02/15/23 11:45 Dose: 2 mg Documented By: DERRICK Lorazepam (Lorazepam 2 Mg/Ml Inj) 1 mg IV NOW ONE Stop: 02/15/23 12:05 Last Admin: 02/15/23 12:08 Dose: 1 mg Documented By: DERRICK Lorazepam (Lorazepam 2 Mg/Ml Inj) 1 mg IV NOW ONE Stop: 02/15/23 13:37 Last Admin: 02/15/23 13:37 Dose: 1 mg Documented By: MIL Lorazepam (Lorazepam 2 Mg/Ml Inj) 1 mg IV NOW ONE Stop: 02/15/23 13:53 Last Admin: 02/15/23 13:52 Dose: 1 mg Documented By: DAYAN Vital Signs Vital signs: Vital Signs - 8 hr 02/17/23 10:00 02/17/23 10:05 02/17/23 10:05 Temperature 98.4 F 98.4 F Pulse Rate 78 84 Respiratory Rate 25 H 29 H Blood Pressure 136/74 Pulse Oximetry 96 96 Oxygen Delivery Method Room Air 02/17/23 10:15 02/17/23 10:30 02/17/23 10:45 Temperature 98.4 F 98.8 F Pulse Rate Respiratory Rate Blood Pressure 142/68 H Pulse Oximetry Oxygen Delivery Method 02/17/23 10:45 02/17/23 11:00 02/17/23 11:30 Temperature 98.8 F 98.4 F 98.4 F Pulse Rate 85 80 85 Respiratory Rate 24 22 Blood Pressure Pulse Oximetry 96 96 96 Oxygen Delivery Method 02/17/23 12:00 02/17/23 12:00 02/17/23 12:30 Temperature 98.4 F 98.6 F Pulse Rate 79 80 Respiratory Rate 28 H Blood Pressure 160/75 H Pulse Oximetry 97 97 Oxygen Delivery Method 02/17/23 13:00 02/17/23 13:30 02/17/23 13:37 Temperature 98.8 F Pulse Rate 80 84 Respiratory Rate 20 Blood Pressure 148/106 H Pulse Oximetry 97 97 Oxygen Delivery Method Room Air 02/17/23 13:37 02/17/23 14:00 02/17/23 14:01 Temperature 98.8 F 99.0 F Pulse Rate 104 H 91 H Respiratory Rate 26 H Blood Pressure 186/78 H Pulse Oximetry 97 97 Oxygen Delivery Method 02/17/23 14:01 02/17/23 14:46 02/17/23 14:30 Temperature 99.0 F Pulse Rate 91 H 82 93 H Respiratory Rate 22 25 H 20 Blood Pressure 186/78 H Pulse Oximetry 97 94 Oxygen Delivery Method Room Air Room Air 02/17/23 15:00 02/17/23 15:30 02/17/23 16:00 Temperature Pulse Rate 83 81 81 Respiratory Rate 20 Blood Pressure Pulse Oximetry 92 93 94 Oxygen Delivery Method 02/17/23 16:01 02/17/23 16:01 02/17/23 16:30 Temperature Pulse Rate 80 82 Respiratory Rate 32 H 29 H Blood Pressure 163/72 H Pulse Oximetry 95 92 Oxygen Delivery Method 02/17/23 17:00 Temperature 98.1 F Pulse Rate 88 Respiratory Rate 20 Blood Pressure Pulse Oximetry 94 Oxygen Delivery Method Room Air <Daly Barajas DO - Last Filed: 02/24/23 01:42> Orders Ordered: Discontinued Medications Amlodipine Besylate (Amlodipine 5 Mg Tablet) 2.5 mg PO DAILY [facility] Last Admin: 02/17/23 08:06 Dose: 2.5 mg Documented By: NICHOLE Docusate Sodium (Docusate 100 Mg Capsule) 100 mg PO NOW ONE Stop: 02/17/23 17:59 Last Admin: 02/17/23 18:04 Dose: 100 mg Documented By: NICHOLE Enoxaparin Sodium (Enoxaparin 40 Mg/0.4 Ml Syringe) 40 mg SUBCUT Q12H [facility] Last Admin: 02/17/23 07:59 Dose: 40 mg Documented By: NICHOLE Levetiracetam 1,000 mg/ Sodium (Chloride) 110 mls @ 440 mls/hr IV NOW ONE Stop: 02/15/23 11:47 Last Infusion: 02/15/23 12:07 Dose: 0 mls/hr Documented By: Admin: 02/15/23 11:52 Dose: 440 mls/hr Documented By: DERRICK Acetaminophen (Ofirmev) 1,000 mg in 100 mls @ 400 mls/hr IV NOW ONE Stop: 02/15/23 13:55 Last Infusion: 02/15/23 14:19 Dose: 0 mls/hr Documented By: Admin: 02/15/23 14:00 Dose: 400 mls/hr Documented By: DAYAN Levetiracetam 1,000 mg/ Sodium (Chloride) 110 mls @ 440 mls/hr IV BID SILVIO Last Infusion: 02/15/23 21:40 Dose: 0 mls/hr Documented By: Admin: 02/15/23 21:23 Dose: 440 mls/hr Documented By: MELECIO Dextrose/Sodium Chloride (Dextrose 5%-0.45% Ns) 1,000 mls @ 125 mls/hr IV CONT SILVIO Last Infusion: 02/17/23 07:30 Dose: 0 mls/hr Documented By: Infusion: 02/16/23 20:21 Dose: 0 mls/hr Documented By: Admin: 02/16/23 17:16 Dose: 125 mls/hr Documented By: Infusion: 02/16/23 15:49 Dose: 125 mls/hr Documented By: Infusion: 02/16/23 14:00 Dose: 125 mls/hr Documented By: Infusion: 02/16/23 11:45 Dose: 0 mls/hr Documented By: Admin: 02/16/23 05:34 Dose: 125 mls/hr Documented By: Infusion: 02/16/23 05:34 Dose: 125 mls/hr Documented By: Infusion: 02/15/23 22:10 Dose: 125 mls/hr Documented By: Infusion: 02/15/23 21:34 Dose: 0 mls/hr Documented By: Admin: 02/15/23 21:34 Dose: 125 mls/hr Documented By: MELECIO Lorazepam (Lorazepam 2 Mg/Ml Inj) 0.5 mg IV NOW ONE Stop: 02/15/23 11:33 Last Admin: 02/15/23 12:38 Dose: Not Given Documented By: DERRICK Lorazepam (Lorazepam 2 Mg/Ml Inj) 2 mg IM NOW ONE Stop: 02/15/23 11:48 Last Admin: 02/15/23 11:45 Dose: 2 mg Documented By: DERRICK Lorazepam (Lorazepam 2 Mg/Ml Inj) 1 mg IV NOW ONE Stop: 02/15/23 12:05 Last Admin: 02/15/23 12:08 Dose: 1 mg Documented By: DERRICK Lorazepam (Lorazepam 2 Mg/Ml Inj) 1 mg IV NOW ONE Stop: 02/15/23 13:37 Last Admin: 02/15/23 13:37 Dose: 1 mg Documented By: MIL Lorazepam (Lorazepam 2 Mg/Ml Inj) 1 mg IV NOW ONE Stop: 02/15/23 13:53 Last Admin: 02/15/23 13:52 Dose: 1 mg Documented By: RB Vital Signs Vital signs: Vital Signs - 8 hr 02/17/23 10:00 02/17/23 10:05 02/17/23 10:05 Temperature 98.4 F 98.4 F Pulse Rate 78 84 Respiratory Rate 25 H 29 H Blood Pressure 136/74 Pulse Oximetry 96 96 Oxygen Delivery Method Room Air 02/17/23 10:15 02/17/23 10:30 02/17/23 10:45 Temperature 98.4 F 98.8 F Pulse Rate Respiratory Rate Blood Pressure 142/68 H Pulse Oximetry Oxygen Delivery Method 02/17/23 10:45 02/17/23 11:00 02/17/23 11:30 Temperature 98.8 F 98.4 F 98.4 F Pulse Rate 85 80 85 Respiratory Rate 24 22 Blood Pressure Pulse Oximetry 96 96 96 Oxygen Delivery Method 02/17/23 12:00 02/17/23 12:00 02/17/23 12:30 Temperature 98.4 F 98.6 F Pulse Rate 79 80 Respiratory Rate 28 H Blood Pressure 160/75 H Pulse Oximetry 97 97 Oxygen Delivery Method 02/17/23 13:00 02/17/23 13:30 02/17/23 13:37 Temperature 98.8 F Pulse Rate 80 84 Respiratory Rate 20 Blood Pressure 148/106 H Pulse Oximetry 97 97 Oxygen Delivery Method Room Air 02/17/23 13:37 02/17/23 14:00 02/17/23 14:01 Temperature 98.8 F 99.0 F Pulse Rate 104 H 91 H Respiratory Rate 26 H Blood Pressure 186/78 H Pulse Oximetry 97 97 Oxygen Delivery Method 02/17/23 14:01 02/17/23 14:46 02/17/23 14:30 Temperature 99.0 F Pulse Rate 91 H 82 93 H Respiratory Rate 22 25 H 20 Blood Pressure 186/78 H Pulse Oximetry 97 94 Oxygen Delivery Method Room Air Room Air 02/17/23 15:00 02/17/23 15:30 02/17/23 16:00 Temperature Pulse Rate 83 81 81 Respiratory Rate 20 Blood Pressure Pulse Oximetry 92 93 94 Oxygen Delivery Method 02/17/23 16:01 02/17/23 16:01 02/17/23 16:30 Temperature Pulse Rate 80 82 Respiratory Rate 32 H 29 H Blood Pressure 163/72 H Pulse Oximetry 95 92 Oxygen Delivery Method 02/17/23 17:00 Temperature 98.1 F Pulse Rate 88 Respiratory Rate 20 Blood Pressure Pulse Oximetry 94 Oxygen Delivery Method Room Air <Alexx Abreu DO - Last Filed: 02/17/23 18:05> Orders Ordered: Discontinued Medications Amlodipine Besylate (Amlodipine 5 Mg Tablet) 2.5 mg PO DAILY [facility] Last Admin: 02/17/23 08:06 Dose: 2.5 mg Documented By: NICHOLE Docusate Sodium (Docusate 100 Mg Capsule) 100 mg PO NOW ONE Stop: 02/17/23 17:59 Last Admin: 02/17/23 18:04 Dose: 100 mg Documented By: NICHOLE Enoxaparin Sodium (Enoxaparin 40 Mg/0.4 Ml Syringe) 40 mg SUBCUT Q12H [facility] Last Admin: 02/17/23 07:59 Dose: 40 mg Documented By: NICHOLE Levetiracetam 1,000 mg/ Sodium (Chloride) 110 mls @ 440 mls/hr IV NOW ONE Stop: 02/15/23 11:47 Last Infusion: 02/15/23 12:07 Dose: 0 mls/hr Documented By: Admin: 02/15/23 11:52 Dose: 440 mls/hr Documented By: DERRICK Acetaminophen (Ofirmev) 1,000 mg in 100 mls @ 400 mls/hr IV NOW ONE Stop: 02/15/23 13:55 Last Infusion: 02/15/23 14:19 Dose: 0 mls/hr Documented By: Admin: 02/15/23 14:00 Dose: 400 mls/hr Documented By: DAYAN Levetiracetam 1,000 mg/ Sodium (Chloride) 110 mls @ 440 mls/hr IV BID [facility] Last Infusion: 02/15/23 21:40 Dose: 0 mls/hr Documented By: Admin: 02/15/23 21:23 Dose: 440 mls/hr Documented By: MELECIO Dextrose/Sodium Chloride (Dextrose 5%-0.45% Ns) 1,000 mls @ 125 mls/hr IV CONT [facility] Last Infusion: 02/17/23 07:30 Dose: 0 mls/hr Documented By: Infusion: 02/16/23 20:21 Dose: 0 mls/hr Documented By: Admin: 02/16/23 17:16 Dose: 125 mls/hr Documented By: Infusion: 02/16/23 15:49 Dose: 125 mls/hr Documented By: Infusion: 02/16/23 14:00 Dose: 125 mls/hr Documented By: Infusion: 02/16/23 11:45 Dose: 0 mls/hr Documented By: Admin: 02/16/23 05:34 Dose: 125 mls/hr Documented By: Infusion: 02/16/23 05:34 Dose: 125 mls/hr Documented By: Infusion: 02/15/23 22:10 Dose: 125 mls/hr Documented By: Infusion: 02/15/23 21:34 Dose: 0 mls/hr Documented By: Admin: 02/15/23 21:34 Dose: 125 mls/hr Documented By: MELECIO Lorazepam (Lorazepam 2 Mg/Ml Inj) 0.5 mg IV NOW ONE Stop: 02/15/23 11:33 Last Admin: 02/15/23 12:38 Dose: Not Given Documented By: DERRICK Lorazepam (Lorazepam 2 Mg/Ml Inj) 2 mg IM NOW ONE Stop: 02/15/23 11:48 Last Admin: 02/15/23 11:45 Dose: 2 mg Documented By: DERRICK Lorazepam (Lorazepam 2 Mg/Ml Inj) 1 mg IV NOW ONE Stop: 02/15/23 12:05 Last Admin: 02/15/23 12:08 Dose: 1 mg Documented By: DERRICK Lorazepam (Lorazepam 2 Mg/Ml Inj) 1 mg IV NOW ONE Stop: 02/15/23 13:37 Last Admin: 02/15/23 13:37 Dose: 1 mg Documented By: MIL Lorazepam (Lorazepam 2 Mg/Ml Inj) 1 mg IV NOW ONE Stop: 02/15/23 13:53 Last Admin: 02/15/23 13:52 Dose: 1 mg Documented By: DAYAN Vital Signs Vital signs: Vital Signs - 8 hr 02/17/23 10:00 02/17/23 10:05 02/17/23 10:05 Temperature 98.4 F 98.4 F Pulse Rate 78 84 Respiratory Rate 25 H 29 H Blood Pressure 136/74 Pulse Oximetry 96 96 Oxygen Delivery Method Room Air 02/17/23 10:15 02/17/23 10:30 02/17/23 10:45 Temperature 98.4 F 98.8 F Pulse Rate Respiratory Rate Blood Pressure 142/68 H Pulse Oximetry Oxygen Delivery Method 02/17/23 10:45 02/17/23 11:00 02/17/23 11:30 Temperature 98.8 F 98.4 F 98.4 F Pulse Rate 85 80 85 Respiratory Rate 24 22 Blood Pressure Pulse Oximetry 96 96 96 Oxygen Delivery Method 02/17/23 12:00 02/17/23 12:00 02/17/23 12:30 Temperature 98.4 F 98.6 F Pulse Rate 79 80 Respiratory Rate 28 H Blood Pressure 160/75 H Pulse Oximetry 97 97 Oxygen Delivery Method 02/17/23 13:00 02/17/23 13:30 02/17/23 13:37 Temperature 98.8 F Pulse Rate 80 84 Respiratory Rate 20 Blood Pressure 148/106 H Pulse Oximetry 97 97 Oxygen Delivery Method Room Air 02/17/23 13:37 02/17/23 14:00 02/17/23 14:01 Temperature 98.8 F 99.0 F Pulse Rate 104 H 91 H Respiratory Rate 26 H Blood Pressure 186/78 H Pulse Oximetry 97 97 Oxygen Delivery Method 02/17/23 14:01 02/17/23 14:46 02/17/23 14:30 Temperature 99.0 F Pulse Rate 91 H 82 93 H Respiratory Rate 22 25 H 20 Blood Pressure 186/78 H Pulse Oximetry 97 94 Oxygen Delivery Method Room Air Room Air 02/17/23 15:00 02/17/23 15:30 02/17/23 16:00 Temperature Pulse Rate 83 81 81 Respiratory Rate 20 Blood Pressure Pulse Oximetry 92 93 94 Oxygen Delivery Method 02/17/23 16:01 02/17/23 16:01 02/17/23 16:30 Temperature Pulse Rate 80 82 Respiratory Rate 32 H 29 H Blood Pressure 163/72 H Pulse Oximetry 95 92 Oxygen Delivery Method 02/17/23 17:00 Temperature 98.1 F Pulse Rate 88 Respiratory Rate 20 Blood Pressure Pulse Oximetry 94 Oxygen Delivery Method Room Air MDM - Neuro Symptoms/Deficit <German Arreola MD - Last Filed: 02/21/23 12:27> Lab Data 02/17/23 16:55 02/17/23 16:55 Labs: Lab Results 02/15/23 02/15/23 02/15/23 Range/Units 11:45 11:45 11:45 WBC 11.8 H (4.5-11.0) X10^3/uL RBC 4.72 (4.0-5.2) X10^6/uL Hgb 13.1 (12.0-16.0) g/dL Hct 40.5 (36-46) % MCV 85.7 (80-100) fL MCH 27.8 (26-34) PG MCHC 32.4 (30-36) % RDW 15.8 H (11.6-14.8) % Plt Count 276 (150-400) X10^3/uL Neut % (Auto) 72.4 (50-75) % Lymph % (Auto) 16.6 L (25-40) % [place] % (Auto) 8.8 (3-14) % Eos % (Auto) 1.3 L (2-4) % Baso % (Auto) 0.9 (0-2) % Neut # (Auto) 8500 H (8777-5032) /uL Lymph # (Auto) 2000 (3383-4748) /uL [place] # (Auto) 1000 H (0-900) /uL Eos # (Auto) 200 (0-450) /uL Baso # (Auto) 100 (0-100) /uL PT 11.6 (10.1-12.7) SECONDS INR 1.0 (0.9-1.3) APTT 32 (26-36) SECONDS Sodium 141 (137-145) mmol/L Potassium 3.9 (3.4-5.1) mmol/L Chloride 100 (98-107) mmol/L Carbon Dioxide 33 H (22-32) mmol/L BUN 18 H (7-17) mg/dL Creatinine 0.73 (0.52-1.04) mg/dL Estimated GFR > 60 (>60) mL/min BUN/Creatinine Ratio 24.7 H (6-22) Glucose 105 H (70-100) mg/dL Calcium 10.4 H (8.4-10.2) mg/dL Total Bilirubin 0.9 (0.2-1.3) mg/dL AST 37 H (14-36) IU/L ALT 43 H (<35) IU/L Alkaline Phosphatase 112 (38-126) U/L Total Creatine Kinase 43 (30-135) U/L Troponin I < 0.012 (0.01-0.034) ng/mL Total Protein 7.6 (6.3-8.2) g/dL Albumin 4.4 (3.5-5.0) g/dL Globulin 3.2 (1.7-4.1) g/dL Albumin/Globulin Ratio 1.4 (1.0-2.8) Prolactin (3.0-18.6) ng/mL Salicylates (<20) mg/dL U Opiates 300ng/mL cut (Negative) Ur Oxycodone Screen (Negative) Urine Methadone Screen (Negative) Acetaminophen (10-30) ug/mL Ur Barbiturates Screen (Negative) U Tricyclic Antidepress (Negative) Ur Phencyclidine Scrn (Negative) Ur Amphetamines Screen (Negative) U Methamphetamines Scrn (Negative) Ur MDMA Scrn (Ecstasy) (Negative) U Benzodiazepines Scrn (Negative) Urine Cocaine Screen (Negative) U Marijuana (THC) Screen (Negative) Ethyl Alcohol < 10 ( - 10) mg/dL Chlamy pneumoniae PCR (Not Detect) Adenovirus (PCR) (Not Detect) B. pertussis DNA (PCR) (Not Detecte) B.parapertussis DNA PCR (Not Detecte) Coronavirus OC43 (PCR) (Not Detect) Coronavirus HKU1 (PCR) (Not Detect) Coronavirus 229E (PCR) (Not Detect) SARS-CoV-2 (PCR) (Not Detecte) Coronavirus NL63 (PCR) (Not Detect) Human Metapneumovir PCR (Not Detect) Influenza Type A (PCR) (Not Detect) Influenza Type B (PCR) (Not Detect) M. pneumoniae (PCR) (Not Detect) Parainfluenza 1 (PCR) (Not Detect) Parainfluenza 2 (PCR) (Not Detect) Parainfluenza 3 (PCR) (Not Detect) Parainfluenza 4 (PCR) (Not Detect) RSV (PCR) (Not Detect) Entero/Rhino (PCR) (Not Detect) 02/15/23 02/15/23 02/15/23 Range/Units 11:45 11:45 18:45 WBC (4.5-11.0) X10^3/uL RBC (4.0-5.2) X10^6/uL Hgb (12.0-16.0) g/dL Hct (36-46) % MCV (80-100) fL MCH (26-34) PG MCHC (30-36) % RDW (11.6-14.8) % Plt Count (150-400) X10^3/uL Neut % (Auto) (50-75) % Lymph % (Auto) (25-40) % Payette % (Auto) (3-14) % Eos % (Auto) (2-4) % Baso % (Auto) (0-2) % Neut # (Auto) (7036-9363) /uL Lymph # (Auto) (7488-4396) /uL Payette # (Auto) (0-900) /uL Eos # (Auto) (0-450) /uL Baso # (Auto) (0-100) /uL PT (10.1-12.7) SECONDS INR (0.9-1.3) APTT (26-36) SECONDS Sodium (137-145) mmol/L Potassium (3.4-5.1) mmol/L Chloride (98-107) mmol/L Carbon Dioxide (22-32) mmol/L BUN (7-17) mg/dL Creatinine (0.52-1.04) mg/dL Estimated GFR (>60) mL/min BUN/Creatinine Ratio (6-22) Glucose (70-100) mg/dL Calcium (8.4-10.2) mg/dL Total Bilirubin (0.2-1.3) mg/dL AST (14-36) IU/L ALT (<35) IU/L Alkaline Phosphatase (38-126) U/L Total Creatine Kinase (30-135) U/L Troponin I (0.01-0.034) ng/mL Total Protein (6.3-8.2) g/dL Albumin (3.5-5.0) g/dL Globulin (1.7-4.1) g/dL Albumin/Globulin Ratio (1.0-2.8) Prolactin 13.5 (3.0-18.6) ng/mL Salicylates < 1.0 (<20) mg/dL U Opiates 300ng/mL cut (Negative) Ur Oxycodone Screen (Negative) Urine Methadone Screen (Negative) Acetaminophen < 10 (10-30) ug/mL Ur Barbiturates Screen (Negative) U Tricyclic Antidepress (Negative) Ur Phencyclidine Scrn (Negative) Ur Amphetamines Screen (Negative) U Methamphetamines Scrn (Negative) Ur MDMA Scrn (Ecstasy) (Negative) U Benzodiazepines Scrn (Negative) Urine Cocaine Screen (Negative) U Marijuana (THC) Screen (Negative) Ethyl Alcohol ( - 10) mg/dL Chlamy pneumoniae PCR Not detected (Not Detect) Adenovirus (PCR) Not detected (Not Detect) B. pertussis DNA (PCR) Not detected (Not Detecte) B.parapertussis DNA PCR Not detected (Not Detecte) Coronavirus OC43 (PCR) Not detected (Not Detect) Coronavirus HKU1 (PCR) Not detected (Not Detect) Coronavirus 229E (PCR) Not detected (Not Detect) SARS-CoV-2 (PCR) Not detected (Not Detecte) Coronavirus NL63 (PCR) Not detected (Not Detect) Human Metapneumovir PCR Not detected (Not Detect) Influenza Type A (PCR) Not detected (Not Detect) Influenza Type B (PCR) Not detected (Not Detect) M. pneumoniae (PCR) Not detected (Not Detect) Parainfluenza 1 (PCR) Not detected (Not Detect) Parainfluenza 2 (PCR) Not detected (Not Detect) Parainfluenza 3 (PCR) Not detected (Not Detect) Parainfluenza 4 (PCR) Not detected (Not Detect) RSV (PCR) Not detected (Not Detect) Entero/Rhino (PCR) Not detected (Not Detect) 02/15/23 02/17/23 02/17/23 Range/Units 18:45 16:55 16:55 WBC 8.5 (4.5-11.0) X10^3/uL RBC 4.36 (4.0-5.2) X10^6/uL Hgb 12.6 (12.0-16.0) g/dL Hct 37.4 (36-46) % MCV 85.8 (80-100) fL MCH 28.8 (26-34) PG MCHC 33.6 (30-36) % RDW 15.7 H (11.6-14.8) % Plt Count 230 (150-400) X10^3/uL Neut % (Auto) 69.9 (50-75) % Lymph % (Auto) 20.3 L (25-40) % Payette % (Auto) 6.4 (3-14) % Eos % (Auto) 2.2 (2-4) % Baso % (Auto) 1.2 (0-2) % Neut # (Auto) 5900 (5544-8084) /uL Lymph # (Auto) 1700 (6343-5970) /uL Payette # (Auto) 500 (0-900) /uL Eos # (Auto) 200 (0-450) /uL Baso # (Auto) 100 (0-100) /uL PT (10.1-12.7) SECONDS INR (0.9-1.3) APTT (26-36) SECONDS Sodium 137 (137-145) mmol/L Potassium 4.0 (3.4-5.1) mmol/L Chloride 102 (98-107) mmol/L Carbon Dioxide 31 (22-32) mmol/L BUN 17 (7-17) mg/dL Creatinine 0.44 L (0.52-1.04) mg/dL Estimated GFR > 60 (>60) mL/min BUN/Creatinine Ratio 38.6 H (6-22) Glucose 106 H (70-100) mg/dL Calcium 8.4 (8.4-10.2) mg/dL Total Bilirubin 0.8 (0.2-1.3) mg/dL AST 41 H (14-36) IU/L ALT 51 H (<35) IU/L Alkaline Phosphatase 78 (38-126) U/L Total Creatine Kinase (30-135) U/L Troponin I (0.01-0.034) ng/mL Total Protein 6.7 (6.3-8.2) g/dL Albumin 3.6 (3.5-5.0) g/dL Globulin 3.1 (1.7-4.1) g/dL Albumin/Globulin Ratio 1.2 (1.0-2.8) Prolactin (3.0-18.6) ng/mL Salicylates (<20) mg/dL U Opiates 300ng/mL cut Negative (Negative) Ur Oxycodone Screen Negative (Negative) Urine Methadone Screen Negative (Negative) Acetaminophen (10-30) ug/mL Ur Barbiturates Screen Negative (Negative) U Tricyclic Antidepress Negative (Negative) Ur Phencyclidine Scrn Negative (Negative) Ur Amphetamines Screen Negative (Negative) U Methamphetamines Scrn Negative (Negative) Ur MDMA Scrn (Ecstasy) Negative (Negative) U Benzodiazepines Scrn Positive H (Negative) Urine Cocaine Screen Negative (Negative) U Marijuana (THC) Screen Negative (Negative) Ethyl Alcohol ( - 10) mg/dL Chlamy pneumoniae PCR (Not Detect) Adenovirus (PCR) (Not Detect) B. pertussis DNA (PCR) (Not Detecte) B.parapertussis DNA PCR (Not Detecte) Coronavirus OC43 (PCR) (Not Detect) Coronavirus HKU1 (PCR) (Not Detect) Coronavirus 229E (PCR) (Not Detect) SARS-CoV-2 (PCR) (Not Detecte) Coronavirus NL63 (PCR) (Not Detect) Human Metapneumovir PCR (Not Detect) Influenza Type A (PCR) (Not Detect) Influenza Type B (PCR) (Not Detect) M. pneumoniae (PCR) (Not Detect) Parainfluenza 1 (PCR) (Not Detect) Parainfluenza 2 (PCR) (Not Detect) Parainfluenza 3 (PCR) (Not Detect) Parainfluenza 4 (PCR) (Not Detect) RSV (PCR) (Not Detect) Entero/Rhino (PCR) (Not Detect) Point of Care Testing Glucose POC [address] scan - head: Radiologist's Impression: [address] [address] [address] Scan Report Signed Patient: Fernando Cisneros MR#: [id number] : 1970 Acct:[id number] Age/Sex: 52 / F Date of Service: 02/15/23 Loc: ED Accession Number: [id number] ?? Procedure: CT Stroke Ordering Provider: German Arreola MD PROCEDURE:? CT STROKE ? INDICATIONS:? Left-sided weakness ? TECHNIQUE:? Noncontrast 4.5 mm thick angled axial sections acquired from the foramen magnum to the vertex, with coronal reformats.? For radiation dose reduction, the following was used:? automated exposure control, adjustment of mA and/or kV according to patient size.? ? COMPARISON:? None. ? FINDINGS:? Image quality:? Excellent.? ? CSF spaces:? Basal cisterns are patent.? No extra-axial fluid collections.? Ventricles are normal in size and shape.? ? Brain:? No midline shift.? No intracranial masses or hemorrhage.? Regan-white matter interface is normal.? ? Skull and face:? Calvarium and visualized facial bones are intact, without suspicious lesions.? ? Sinuses:? Visualized sinuses and mastoids are clear.? ? IMPRESSION:? No acute intracranial process. ? Comment: Findings were discussed with Dr. Arreola on? 02/15/2023 at 1231 hours ? ? This study fulfills neurological imaging criteria for inclusion or exclusion of acute stroke therapies based on available published neurological imaging guidelines.? ? ? Dictated by: Agapito Marquis M.D. on 02/15/2023 at 12:30 ? ? Approved by: Agapito Marquis M.D. on 02/15/2023 at 12:31 ? CTA - brain/neck: Radiologist's Impression: [place] [address] CT Scan Report Signed Patient: Fernando Cisneros MR#: [id number] : 1970 Acct:[id number] Age/Sex: 52 / F Date of Service: 02/15/23 Loc: ED Accession Number: [id number] ?? Procedure: CT angio head and neck Ordering Provider: German Arreola MD PROCEDURE:? CT ANGIO HEAD AND NECK ? INDICATIONS:? Left-sided weakness ? TECHNIQUE:? Noncontrast images were performed earlier in the day and not repeated.? ? After the administration of intravenous contrast, 1 mm thick sections acquired from the aortic arch through the Sarah of Marinelli.? Post-contrast 4.5 mm thick sections then re-acquired from the foramen magnum to the vertex.? 3-dimensional ahgyaad-zpybriovc-iibdtjvyvh (MIP) and/or volume rendering reformats were acquired of the central intracranial vasculature and neck separately. For radiation dose reduction, the following was used:? automated exposure control, adjustment of mA and/or kV according to patient size.? ? COMPARISON:? [facility], CT, CT STROKE, 02/15/2023, 12:18.? [facility], CT, CT NECK SOFT TISSUE W CON, 03/09/2015, 16:02. ? FINDINGS:? Image quality:? This study is limited by body habitus. This examination is somewhat limited by quantum mottle artifact.? ? ? BRAIN:? CSF spaces:? Ventricles are normal in size and shape.? Basal cisterns are patent.? No extra-axial fluid collections.? ? Brain:? No midline shift.? No intracranial bleeds or masses.? Regan-white matter interface appears intact.? ? Skull and face:? Calvarium and facial bones appear intact, without suspicious lesions.? Orbits appear normal.? ? Sinuses:? Sinuses and mastoids are clear.? ? HEAD CT ANGIOGRAPHY:? Anterior circulation:? Intracranial internal carotid arteries are normal in size and flow.? The flow within the paired anterior cerebral arteries is normal and symmetric.? The flow within the middle cerebral arteries is normal and symmetric.? The anterior communicating artery is seen.? No aneurysms are seen.? ? Posterior circulation:? Visualized portions of the vertebral arteries demonstrate normal caliber, and join to form a normal appearing basilar artery.? Flow within the posterior cerebral arteries is normal and symmetric.? No aneurysms are seen.? ? NECK CT ANGIOGRAPHY:? Carotid system:? The great vessels demonstrate a conventional anatomy as they arise from the aortic arch.? The origins of the common carotid arteries appear patent.? The common carotid arteries demonstrate normal caliber and courses.? The bifurcation regions are both widely patent.? The internal carotid arteries demonstrate normal calibers.? Tortuosity is seen of the internal carotid arteries.? ? Posterior circulation:? The origins of the vertebral arteries both appear widely patent.? The more superior extracranial portions of both vertebral arteries also demonstrate normal courses and calibers.? They join to form a normal appearing basilar artery.? ? Soft tissues:? Visualized neck soft tissues demonstrate no suspicious abnormalities.? ? Bones:? No suspicious bony lesions.? Visualized cervical spine appears normally aligned.? At least moderate cervical spine degenerative change can be seen. ? ? IMPRESSION:? Within the arteries of the neck, no hemodynamically significant stenosis can be seen. ? ? No significant intracranial arterial abnormality is seen.? ? If there is strong clinical suspicion for an acute stroke, please consider a brain MRI for further evaluation, as it is more sensitive (assuming that there is no contraindication to MRI). ? Any quantitative measurements of stenosis were performed using NASCET criteria.? ? ? Dictated by: Alexey Nevarez M.D. on 02/15/2023 at 11:57 ? ? Approved by: Alexey Nevarez M.D. on 02/15/2023 at 12:00 ? [facility] Narrative Medical decision making narrative: Patient brought here by [id number] for headache and generalized body twitching. No history stroke no history of seizure denies any recent illness denies any new medications. Denies any new stressors in life. Last well known 8:00 a.m. today. Patient is awake alert oriented x4. During course of exam she states her left arm and left leg starting feel week. Code stroke was called. During IV access patient did have a generalized tonic-clonic seizure-like activity however she remained awake and was aware of surroundings. Ativan 2 mg intramuscular was ordered. Patient did remain awake during this episode. After history and exam CBC CMP EKG CT stroke/CT angiogram head and neck, Ativan troponin Fish Shabazz [facility] CC: Headache/tremors Complicating co-morbidities: Hypertension diabetes fibromyalgia Data collected from: Patient and [id number]-luw Medical records reviewed: No recent visit for this complaint Differential considered: Includes but not limited to stroke new onset seizure head bleed atypical migraine headache brain tumor Exam documented above, pertinent findings include: Seizure activity Lab Test results independently reviewed as above. Pertinent findings: CBC shows white cell count 11.8, INR 1.0 sodium 141 potassium 3.9 glucose 105 Independently reviewed EKG Imaging studies independently reviewed: CT head CT angiogram head neck no acute finding Consultations: 12:[address] Marquis, radiologist CT head without contrast is unremarkable 12:36 p.m., spoke with [facility] tele stroke, Dr. Truong, at this time no tPA, she will review imaging. 1:16 p.m.. Spoke with [facility] tele stroke, dr truong, no tPA at this time. Recommends MRI brain with and without contrast diffusion weight based, she does agree with Keppra and Ativan at this time Treatments: Keppra Ativan Re-evaluations: 12:[address] scan imaging is able to lay still. Ativan and Keppra was given. Patient following instructions very well. No seizure activity or dystonia or tremors. 12:42 p.m.. Patient resting comfortably, no seizure activity. 1:10 p.m.. 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 2:02 p.m.. Family updated that unable to keep here because due to body habitus unable to do MRI here as well as we do not have neurology services. No recent illness with patient. No cough cold congestion fever chills. No known recent tick bite 4 p.m.. Patient sleeping. During observation of this patient was moving her left arm and her left leg. Discussion: Appropriate for transfer. Patient will need facility that can accommodate for body habitus, larger MRI, will need neurology consult services as well. No spinal tap indicated this time. No fever. No history of tick bite. No rash. Diagnosis: Altered mental status/convulsion February 15, 2023 at 6:00 p.m. Maxwell: Sign out to Dr Barajas, patient here for workup for convulsions new onset seizure versus stroke. However after speaking with tele stroke and Neurology, patient will need MRI, difficulty is finding MRI large enough to accommodate patient's girth. No tPA indicated this time. Awaiting for transfer facility to accommodate. Dr. Barajas-received sign-out from Dr. Barajas I have seen evaluated patient myself. Presents today with concern for seizure versus CVA. Sons are at bedside they report that she was normal yesterday and actually 1 of the sons spoke to her on the phone at around 10:30 a.m. in the morning complaining of severe headache. Questionable like seizure with Jeff's paralysis versus atypical migraine versus CVA. Stroke was consulted no tPA but did recommend MRI. Patient has continued to have some episodes of shaking and convulsions. She has been given a dose of Keppra multiple doses Ativan. I was called to see and evaluate patient after an episode. Nurse reports episode lasted 5-10 seconds she is able to squeeze hands. My concern is for possible pseudoseizures versus other. She is responsive able to hvac technician my hands able to answer some questions but overall appears extremely weak. Patient's abdomen girth is large. With both arms by her side abdominal girth is greater than 80 cm therefore making MRI difficult. Questionable there is a different way to position patient so that she can have an MRI. Spoken with Jenn SALAZAR. I think based on her presentation reasonable to transfer for EEG and full neuro evaluation although I do suspect psych and pseudoseizures. CT and CTA do not show any obvious mass. Blood work is reassuring tox screen negative no evidence of infection. 2152 Dr. Heath, neurologist at [facility] updated patient's symptoms test results. At this time difficult to tell if patient is having nonconvulsive seizures versus other. However based on exam and 12nd episodes of convulsing with being quickly alert afterwards in very little postictal he does not think it is status epilepticus which I agree with. He recommends to stop the Keppra. He reports that it MRI would be for completeness sake however it appears that there are no MRIs that the patient would fit in. Recommends repeating a noncontrasted head CT at a 24 hour kasey. She can have an outpatient workup. There is no need to transfer her for an EEG. She does not qualify for continuous monitoring at this time. After family left patient became awake alert oriented. Requesting Jell-O. Glucose was mildly low she was put on dextrose with regular Accu-Cheks. Breakfast is ordered. She is sleeping comfortably. Patient signed out to Dr. Arreola February 16, 2023 at 7:00 a.[address].. Sign out from Dr Barajas, she has reviewed with neurologist over the course of the night. At this time recommend repeat CT scan of the head 24 hours after arrival from yesterday. Appropriate for outpatient workup, no need to transfer EEG. Neurologist overnight recommends stopping Keppra. Time 4 p.m.. Spoke with [facility], at this time he agrees patient does not need MRI or EEG and he would be following in consult. They do have psychiatry services and do consult inpatient but not over the phone. Degrees patient could be admitted to the hospitalist group and psychiatry and neurology to follow in consult. Patient at this time does not appear to be in status epilepticus. Given clinic presentation. 4:30 p.m.. Spoke with [facility] Dr. Casey, neurology, agrees patient does not need MRI or EEG urgently. Patient would benefit observation admission for symptoms, not safe for discharge home. I spoke with hospitalist group, Rohan Steward, he will accept patient at [facility], no beds at this time. Likely tomorrow to help of bed 6:00 p.m.. Maxwell: Sign out to Dr Barajas, [facility] Pending bed availability. tool maintenance worker has seen patient. <Daly Barajas, DO - Last Filed: 02/24/23 01:42> Lab Data Labs: Lab Results 02/15/23 02/15/23 02/15/23 Range/Units 11:45 11:45 11:45 WBC 11.8 H (4.5-11.0) X10^3/uL RBC 4.72 (4.0-5.2) X10^6/uL Hgb 13.1 (12.0-16.0) g/dL Hct 40.5 (36-46) % MCV 85.7 (80-100) fL MCH 27.8 (26-34) PG MCHC 32.4 (30-36) % RDW 15.8 H (11.6-14.8) % Plt Count 276 (150-400) X10^3/uL Neut % (Auto) 72.4 (50-75) % Lymph % (Auto) 16.6 L (25-40) % Payette % (Auto) 8.8 (3-14) % Eos % (Auto) 1.3 L (2-4) % Baso % (Auto) 0.9 (0-2) % Neut # (Auto) 8500 H (3172-0959) /uL Lymph # (Auto) 2000 (7662-0536) /uL Payette # (Auto) 1000 H (0-900) /uL Eos # (Auto) 200 (0-450) /uL Baso # (Auto) 100 (0-100) /uL PT 11.6 (10.1-12.7) SECONDS INR 1.0 (0.9-1.3) APTT 32 (26-36) SECONDS Sodium 141 (137-145) mmol/L Potassium 3.9 (3.4-5.1) mmol/L Chloride 100 (98-107) mmol/L Carbon Dioxide 33 H (22-32) mmol/L BUN 18 H (7-17) mg/dL Creatinine 0.73 (0.52-1.04) mg/dL Estimated GFR > 60 (>60) mL/min BUN/Creatinine Ratio 24.7 H (6-22) Glucose 105 H (70-100) mg/dL Calcium 10.4 H (8.4-10.2) mg/dL Total Bilirubin 0.9 (0.2-1.3) mg/dL AST 37 H (14-36) IU/L ALT 43 H (<35) IU/L Alkaline Phosphatase 112 (38-126) U/L Total Creatine Kinase 43 (30-135) U/L Troponin I < 0.012 (0.01-0.034) ng/mL Total Protein 7.6 (6.3-8.2) g/dL Albumin 4.4 (3.5-5.0) g/dL Globulin 3.2 (1.7-4.1) g/dL Albumin/Globulin Ratio 1.4 (1.0-2.8) Prolactin (3.0-18.6) ng/mL Salicylates (<20) mg/dL U Opiates 300ng/mL cut (Negative) Ur Oxycodone Screen (Negative) Urine Methadone Screen (Negative) Acetaminophen (10-30) ug/mL Ur Barbiturates Screen (Negative) U Tricyclic Antidepress (Negative) Ur Phencyclidine Scrn (Negative) Ur Amphetamines Screen (Negative) U Methamphetamines Scrn (Negative) Ur MDMA Scrn (Ecstasy) (Negative) U Benzodiazepines Scrn (Negative) Urine Cocaine Screen (Negative) U Marijuana (THC) Screen (Negative) Ethyl Alcohol < 10 ( - 10) mg/dL Chlamy pneumoniae PCR (Not Detect) Adenovirus (PCR) (Not Detect) B. pertussis DNA (PCR) (Not Detecte) B.parapertussis DNA PCR (Not Detecte) Coronavirus OC43 (PCR) (Not Detect) Coronavirus HKU1 (PCR) (Not Detect) Coronavirus 229E (PCR) (Not Detect) SARS-CoV-2 (PCR) (Not Detecte) Coronavirus NL63 (PCR) (Not Detect) Human Metapneumovir PCR (Not Detect) Influenza Type A (PCR) (Not Detect) Influenza Type B (PCR) (Not Detect) M. pneumoniae (PCR) (Not Detect) Parainfluenza 1 (PCR) (Not Detect) Parainfluenza 2 (PCR) (Not Detect) Parainfluenza 3 (PCR) (Not Detect) Parainfluenza 4 (PCR) (Not Detect) RSV (PCR) (Not Detect) Entero/Rhino (PCR) (Not Detect) 02/15/23 02/15/23 02/15/23 Range/Units 11:45 11:45 18:45 WBC (4.5-11.0) X10^3/uL RBC (4.0-5.2) X10^6/uL Hgb (12.0-16.0) g/dL Hct (36-46) % MCV (80-100) fL MCH (26-34) PG MCHC (30-36) % RDW (11.6-14.8) % Plt Count (150-400) X10^3/uL Neut % (Auto) (50-75) % Lymph % (Auto) (25-40) % Payette % (Auto) (3-14) % Eos % (Auto) (2-4) % Baso % (Auto) (0-2) % Neut # (Auto) (8571-7638) /uL Lymph # (Auto) (1076-6231) /uL Payette # (Auto) (0-900) /uL Eos # (Auto) (0-450) /uL Baso # (Auto) (0-100) /uL PT (10.1-12.7) SECONDS INR (0.9-1.3) APTT (26-36) SECONDS Sodium (137-145) mmol/L Potassium (3.4-5.1) mmol/L Chloride (98-107) mmol/L Carbon Dioxide (22-32) mmol/L BUN (7-17) mg/dL Creatinine (0.52-1.04) mg/dL Estimated GFR (>60) mL/min BUN/Creatinine Ratio (6-22) Glucose (70-100) mg/dL Calcium (8.4-10.2) mg/dL Total Bilirubin (0.2-1.3) mg/dL AST (14-36) IU/L ALT (<35) IU/L Alkaline Phosphatase (38-126) U/L Total Creatine Kinase (30-135) U/L Troponin I (0.01-0.034) ng/mL Total Protein (6.3-8.2) g/dL Albumin (3.5-5.0) g/dL Globulin (1.7-4.1) g/dL Albumin/Globulin Ratio (1.0-2.8) Prolactin 13.5 (3.0-18.6) ng/mL Salicylates < 1.0 (<20) mg/dL U Opiates 300ng/mL cut (Negative) Ur Oxycodone Screen (Negative) Urine Methadone Screen (Negative) Acetaminophen < 10 (10-30) ug/mL Ur Barbiturates Screen (Negative) U Tricyclic Antidepress (Negative) Ur Phencyclidine Scrn (Negative) Ur Amphetamines Screen (Negative) U Methamphetamines Scrn (Negative) Ur MDMA Scrn (Ecstasy) (Negative) U Benzodiazepines Scrn (Negative) Urine Cocaine Screen (Negative) U Marijuana (THC) Screen (Negative) Ethyl Alcohol ( - 10) mg/dL Chlamy pneumoniae PCR Not detected (Not Detect) Adenovirus (PCR) Not detected (Not Detect) B. pertussis DNA (PCR) Not detected (Not Detecte) B.parapertussis DNA PCR Not detected (Not Detecte) Coronavirus OC43 (PCR) Not detected (Not Detect) Coronavirus HKU1 (PCR) Not detected (Not Detect) Coronavirus 229E (PCR) Not detected (Not Detect) SARS-CoV-2 (PCR) Not detected (Not Detecte) Coronavirus NL63 (PCR) Not detected (Not Detect) Human Metapneumovir PCR Not detected (Not Detect) Influenza Type A (PCR) Not detected (Not Detect) Influenza Type B (PCR) Not detected (Not Detect) M. pneumoniae (PCR) Not detected (Not Detect) Parainfluenza 1 (PCR) Not detected (Not Detect) Parainfluenza 2 (PCR) Not detected (Not Detect) Parainfluenza 3 (PCR) Not detected (Not Detect) Parainfluenza 4 (PCR) Not detected (Not Detect) RSV (PCR) Not detected (Not Detect) Entero/Rhino (PCR) Not detected (Not Detect) 02/15/23 02/17/23 02/17/23 Range/Units 18:45 16:55 16:55 WBC 8.5 (4.5-11.0) X10^3/uL RBC 4.36 (4.0-5.2) X10^6/uL Hgb 12.6 (12.0-16.0) g/dL Hct 37.4 (36-46) % MCV 85.8 (80-100) fL MCH 28.8 (26-34) PG MCHC 33.6 (30-36) % RDW 15.7 H (11.6-14.8) % Plt Count 230 (150-400) X10^3/uL Neut % (Auto) 69.9 (50-75) % Lymph % (Auto) 20.3 L (25-40) % Payette % (Auto) 6.4 (3-14) % Eos % (Auto) 2.2 (2-4) % Baso % (Auto) 1.2 (0-2) % Neut # (Auto) 5900 (0626-6072) /uL Lymph # (Auto) 1700 (3850-2480) /uL Payette # (Auto) 500 (0-900) /uL Eos # (Auto) 200 (0-450) /uL Baso # (Auto) 100 (0-100) /uL PT (10.1-12.7) SECONDS INR (0.9-1.3) APTT (26-36) SECONDS Sodium 137 (137-145) mmol/L Potassium 4.0 (3.4-5.1) mmol/L Chloride 102 (98-107) mmol/L Carbon Dioxide 31 (22-32) mmol/L BUN 17 (7-17) mg/dL Creatinine 0.44 L (0.52-1.04) mg/dL Estimated GFR > 60 (>60) mL/min BUN/Creatinine Ratio 38.6 H (6-22) Glucose 106 H (70-100) mg/dL Calcium 8.4 (8.4-10.2) mg/dL Total Bilirubin 0.8 (0.2-1.3) mg/dL AST 41 H (14-36) IU/L ALT 51 H (<35) IU/L Alkaline Phosphatase 78 (38-126) U/L Total Creatine Kinase (30-135) U/L Troponin I (0.01-0.034) ng/mL Total Protein 6.7 (6.3-8.2) g/dL Albumin 3.6 (3.5-5.0) g/dL Globulin 3.1 (1.7-4.1) g/dL Albumin/Globulin Ratio 1.2 (1.0-2.8) Prolactin (3.0-18.6) ng/mL Salicylates (<20) mg/dL U Opiates 300ng/mL cut Negative (Negative) Ur Oxycodone Screen Negative (Negative) Urine Methadone Screen Negative (Negative) Acetaminophen (10-30) ug/mL Ur Barbiturates Screen Negative (Negative) U Tricyclic Antidepress Negative (Negative) Ur Phencyclidine Scrn Negative (Negative) Ur Amphetamines Screen Negative (Negative) U Methamphetamines Scrn Negative (Negative) Ur MDMA Scrn (Ecstasy) Negative (Negative) U Benzodiazepines Scrn Positive H (Negative) Urine Cocaine Screen Negative (Negative) U Marijuana (THC) Screen Negative (Negative) Ethyl Alcohol ( - 10) mg/dL Chlamy pneumoniae PCR (Not Detect) Adenovirus (PCR) (Not Detect) B. pertussis DNA (PCR) (Not Detecte) B.parapertussis DNA PCR (Not Detecte) Coronavirus OC43 (PCR) (Not Detect) Coronavirus HKU1 (PCR) (Not Detect) Coronavirus 229E (PCR) (Not Detect) SARS-CoV-2 (PCR) (Not Detecte) Coronavirus NL63 (PCR) (Not Detect) Human Metapneumovir PCR (Not Detect) Influenza Type A (PCR) (Not Detect) Influenza Type B (PCR) (Not Detect) M. pneumoniae (PCR) (Not Detect) Parainfluenza 1 (PCR) (Not Detect) Parainfluenza 2 (PCR) (Not Detect) Parainfluenza 3 (PCR) (Not Detect) Parainfluenza 4 (PCR) (Not Detect) RSV (PCR) (Not Detect) Entero/Rhino (PCR) (Not Detect) Point of Care Testing Glucose POC 109 MDM Narrative Medical decision making narrative: Patient brought here by [id number] for headache and generalized body twitching. No history stroke no history of seizure denies any recent illness denies any new medications. Denies any new stressors in life. Last well known 8:00 a.m. today. Patient is awake alert oriented x4. During course of exam she states her left arm and left leg starting feel week. Code stroke was called. During IV access patient did have a generalized tonic-clonic seizure-like activity however she remained awake and was aware of surroundings. Ativan 2 mg intramuscular was ordered. Patient did remain awake during this episode. After history and exam CBC CMP EKG CT stroke/CT angiogram head and neck, Ativan troponin Fish Shabazz [facility] CC: Headache/tremors Complicating co-morbidities: Hypertension diabetes fibromyalgia Data collected from: Patient and [id number] Medical records reviewed: No recent visit for this complaint Differential considered: Includes but not limited to stroke new onset seizure head bleed atypical migraine headache brain tumor Exam documented above, pertinent findings include: Seizure activity Lab Test results independently reviewed as above. Pertinent findings: CBC shows white cell count 11.8, INR 1.0 sodium 141 potassium 3.9 glucose 105 Independently reviewed EKG Imaging studies independently reviewed: CT head CT angiogram head neck no acute finding Consultations: 12:[address] Marquis, radiologist CT head without contrast is unremarkable 12:36 p.m., spoke with [facility] tele stroke, Dr. Truong, at this time no tPA, she will review imaging. 1:16 p.m.. Spoke with [facility] tele stroke, dr truong, no tPA at this time. Recommends MRI brain with and without contrast diffusion weight based, she does agree with Keppra and Ativan at this time Treatments: Keppra Ativan Re-evaluations: 12:[address] scan imaging is able to lay still. Ativan and Keppra was given. Patient following instructions very well. No seizure activity or dystonia or tremors. 12:42 p.m.. Patient resting comfortably, no seizure activity. 1:10 p.m.. 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 2:02 p.m.. Family updated that unable to keep here because due to body habitus unable to do MRI here as well as we do not have neurology services. No recent illness with patient. No cough cold congestion fever chills. No known recent tick bite 4 p.m.. Patient sleeping. During observation of this patient was moving her left arm and her left leg. Discussion: Appropriate for transfer. Patient will need facility that can accommodate for body habitus, larger MRI, will need neurology consult services as well. No spinal tap indicated this time. No fever. No history of tick bite. No rash. Diagnosis: Altered mental status/convulsion February 15, 2023 at 6:00 p.m. Maxwell: Sign out to Dr Barajas, patient here for workup for convulsions new onset seizure versus stroke. However after speaking with tele stroke and Neurology, patient will need MRI, difficulty is finding MRI large enough to accommodate patient's girth. No tPA indicated this time. Awaiting for transfer facility to accommodate. Dr. Barajas-received sign-out from Dr. Arreola I have seen evaluated patient myself. Presents today with concern for seizure versus CVA. Sons are at bedside they report that she was normal yesterday and actually 1 of the sons spoke to her on the phone at around 10:30 a.m. in the morning complaining of severe headache. Questionable like seizure with Jeff's paralysis versus atypical migraine versus CVA. Stroke was consulted no tPA but did recommend MRI. Patient has continued to have some episodes of shaking and convulsions. She has been given a dose of Keppra multiple doses Ativan. I was called to see and evaluate patient after an episode. Nurse reports episode lasted 5-10 seconds she is able to squeeze hands. My concern is for possible pseudoseizures versus other. She is responsive able to hvac technician my hands able to answer some questions but overall appears extremely weak. Patient's abdomen girth is large. With both arms by her side abdominal girth is greater than 80 cm therefore making MRI difficult. Questionable there is a different way to position patient so that she can have an MRI. Spoken with Jenn SALAZAR. I think based on her presentation reasonable to transfer for EEG and full neuro evaluation although I do suspect psych and pseudoseizures. CT and CTA do not show any obvious mass. Blood work is reassuring tox screen negative no evidence of infection. 2152 Dr. Heath, neurologist at [facility] updated patient's symptoms test results. At this time difficult to tell if patient is having nonconvulsive seizures versus other. However based on exam and 12nd episodes of convulsing with being quickly alert afterwards in very little postictal he does not think it is status epilepticus which I agree with. He recommends to stop the Keppra. He reports that it MRI would be for completeness sake however it appears that there are no MRIs that the patient would fit in. Recommends repeating a noncontrasted head CT at a 24 hour kasey. She can have an outpatient workup. There is no need to transfer her for an EEG. She does not qualify for continuous monitoring at this time. After family left patient became awake alert oriented. Requesting Jell-O. Glucose was mildly low she was put on dextrose with regular Accu-Cheks. Breakfast is ordered. She is sleeping comfortably. Patient signed out to Dr. Arreola February 16, 2023 at 7:00 a.m.. Sign out from Dr Barajas, she has reviewed with neurologist over the course of the night. At this time recommend repeat CT scan of the head 24 hours after arrival from yesterday. Appropriate for outpatient workup, no need to transfer EEG. Neurologist overnight recommends stopping Keppra. Time 4 p.m.. Spoke with [facility] neurolog[facility], at this time he agrees patient does not need MRI or EEG and he would be following in consult. They do have psychiatry services and do consult inpatient but not over the phone. Degrees patient could be admitted to the hospitalist group and psychiatry and neurology to follow in consult. Patient at this time does not appear to be in status epilepticus. Given clinic presentation. 4:30 p.m.. Spoke with [facility] Dr. Casey, neurology, agrees patient does not need MRI or EEG urgently. Patient would benefit observation admission for symptoms, not safe for discharge home. I spoke with hospitalist group, Rohan Steward, he will accept patient at [facility], no beds at this time. Likely tomorrow to help of bed 6:00 p.m.. Maxwell: Sign out to Dr Barajas, patient has been accepted to [facility] cabine. Pending bed availability. tool maintenance worker has seen patient. 02/17/23 05:00 Dr. Barajas-patient signed out to me by Dr. Arreola apparently being placed no problems overnight signed out to Dr. Abreu [id number] 02/17/2023 Discussed with Neuro at [place]. Unable to accept patient due to lack of ability to perform long EEG, strongly suggests to continue to pursue [facility] 1729 - Dr. Roberson will be accepting at [facility]. ALS contacted to [facility] patient for transport to [place] <Alexx Abreu DO - Last Filed: 02/17/23 18:05> Lab Data Labs: Lab Results 02/15/23 02/15/23 02/15/23 Range/Units 11:45 11:45 11:45 WBC 11.8 H (4.5-11.0) X10^3/uL RBC 4.72 (4.0-5.2) X10^6/uL Hgb 13.1 (12.0-16.0) g/dL Hct 40.5 (36-46) % MCV 85.7 (80-100) fL MCH 27.8 (26-34) PG MCHC 32.4 (30-36) % RDW 15.8 H (11.6-14.8) % Plt Count 276 (150-400) X10^3/uL Neut % (Auto) 72.4 (50-75) % Lymph % (Auto) 16.6 L (25-40) % Payette % (Auto) 8.8 (3-14) % Eos % (Auto) 1.3 L (2-4) % Baso % (Auto) 0.9 (0-2) % Neut # (Auto) 8500 H (5125-2809) /uL Lymph # (Auto) 2000 (7752-9846) /uL Payette # (Auto) 1000 H (0-900) /uL Eos # (Auto) 200 (0-450) /uL Baso # (Auto) 100 (0-100) /uL PT 11.6 (10.1-12.7) SECONDS INR 1.0 (0.9-1.3) APTT 32 (26-36) SECONDS Sodium 141 (137-145) mmol/L Potassium 3.9 (3.4-5.1) mmol/L Chloride 100 (98-107) mmol/L Carbon Dioxide 33 H (22-32) mmol/L BUN 18 H (7-17) mg/dL Creatinine 0.73 (0.52-1.04) mg/dL Estimated GFR > 60 (>60) mL/min BUN/Creatinine Ratio 24.7 H (6-22) Glucose 105 H (70-100) mg/dL Calcium 10.4 H (8.4-10.2) mg/dL Total Bilirubin 0.9 (0.2-1.3) mg/dL AST 37 H (14-36) IU/L ALT 43 H (<35) IU/L Alkaline Phosphatase 112 (38-126) U/L Total Creatine Kinase 43 (30-135) U/L Troponin I < 0.012 (0.01-0.034) ng/mL Total Protein 7.6 (6.3-8.2) g/dL Albumin 4.4 (3.5-5.0) g/dL Globulin 3.2 (1.7-4.1) g/dL Albumin/Globulin Ratio 1.4 (1.0-2.8) Prolactin (3.0-18.6) ng/mL Salicylates (<20) mg/dL U Opiates 300ng/mL cut (Negative) Ur Oxycodone Screen (Negative) Urine Methadone Screen (Negative) Acetaminophen (10-30) ug/mL Ur Barbiturates Screen (Negative) U Tricyclic Antidepress (Negative) Ur Phencyclidine Scrn (Negative) Ur Amphetamines Screen (Negative) U Methamphetamines Scrn (Negative) Ur MDMA Scrn (Ecstasy) (Negative) U Benzodiazepines Scrn (Negative) Urine Cocaine Screen (Negative) U Marijuana (THC) Screen (Negative) Ethyl Alcohol < 10 ( - 10) mg/dL Chlamy pneumoniae PCR (Not Detect) Adenovirus (PCR) (Not Detect) B. pertussis DNA (PCR) (Not Detecte) B.parapertussis DNA PCR (Not Detecte) Coronavirus OC43 (PCR) (Not Detect) Coronavirus HKU1 (PCR) (Not Detect) Coronavirus 229E (PCR) (Not Detect) SARS-CoV-2 (PCR) (Not Detecte) Coronavirus NL63 (PCR) (Not Detect) Human Metapneumovir PCR (Not Detect) Influenza Type A (PCR) (Not Detect) Influenza Type B (PCR) (Not Detect) M. pneumoniae (PCR) (Not Detect) Parainfluenza 1 (PCR) (Not Detect) Parainfluenza 2 (PCR) (Not Detect) Parainfluenza 3 (PCR) (Not Detect) Parainfluenza 4 (PCR) (Not Detect) RSV (PCR) (Not Detect) Entero/Rhino (PCR) (Not Detect) 02/15/23 02/15/23 02/15/23 Range/Units 11:45 11:45 18:45 WBC (4.5-11.0) X10^3/uL RBC (4.0-5.2) X10^6/uL Hgb (12.0-16.0) g/dL Hct (36-46) % MCV (80-100) fL MCH (26-34) PG MCHC (30-36) % RDW (11.6-14.8) % Plt Count (150-400) X10^3/uL Neut % (Auto) (50-75) % Lymph % (Auto) (25-40) % Payette % (Auto) (3-14) % Eos % (Auto) (2-4) % Baso % (Auto) (0-2) % Neut # (Auto) (8335-7501) /uL Lymph # (Auto) (1229-4706) /uL Payette # (Auto) (0-900) /uL Eos # (Auto) (0-450) /uL Baso # (Auto) (0-100) /uL PT (10.1-12.7) SECONDS INR (0.9-1.3) APTT (26-36) SECONDS Sodium (137-145) mmol/L Potassium (3.4-5.1) mmol/L Chloride (98-107) mmol/L Carbon Dioxide (22-32) mmol/L BUN (7-17) mg/dL Creatinine (0.52-1.04) mg/dL Estimated GFR (>60) mL/min BUN/Creatinine Ratio (6-22) Glucose (70-100) mg/dL Calcium (8.4-10.2) mg/dL Total Bilirubin (0.2-1.3) mg/dL AST (14-36) IU/L ALT (<35) IU/L Alkaline Phosphatase (38-126) U/L Total Creatine Kinase (30-135) U/L Troponin I (0.01-0.034) ng/mL Total Protein (6.3-8.2) g/dL Albumin (3.5-5.0) g/dL Globulin (1.7-4.1) g/dL Albumin/Globulin Ratio (1.0-2.8) Prolactin 13.5 (3.0-18.6) ng/mL Salicylates < 1.0 (<20) mg/dL U Opiates 300ng/mL cut (Negative) Ur Oxycodone Screen (Negative) Urine Methadone Screen (Negative) Acetaminophen < 10 (10-30) ug/mL Ur Barbiturates Screen (Negative) U Tricyclic Antidepress (Negative) Ur Phencyclidine Scrn (Negative) Ur Amphetamines Screen (Negative) U Methamphetamines Scrn (Negative) Ur MDMA Scrn (Ecstasy) (Negative) U Benzodiazepines Scrn (Negative) Urine Cocaine Screen (Negative) U Marijuana (THC) Screen (Negative) Ethyl Alcohol ( - 10) mg/dL Chlamy pneumoniae PCR Not detected (Not Detect) Adenovirus (PCR) Not detected (Not Detect) B. pertussis DNA (PCR) Not detected (Not Detecte) B.parapertussis DNA PCR Not detected (Not Detecte) Coronavirus OC43 (PCR) Not detected (Not Detect) Coronavirus HKU1 (PCR) Not detected (Not Detect) Coronavirus 229E (PCR) Not detected (Not Detect) SARS-CoV-2 (PCR) Not detected (Not Detecte) Coronavirus NL63 (PCR) Not detected (Not Detect) Human Metapneumovir PCR Not detected (Not Detect) Influenza Type A (PCR) Not detected (Not Detect) Influenza Type B (PCR) Not detected (Not Detect) M. pneumoniae (PCR) Not detected (Not Detect) Parainfluenza 1 (PCR) Not detected (Not Detect) Parainfluenza 2 (PCR) Not detected (Not Detect) Parainfluenza 3 (PCR) Not detected (Not Detect) Parainfluenza 4 (PCR) Not detected (Not Detect) RSV (PCR) Not detected (Not Detect) Entero/Rhino (PCR) Not detected (Not Detect) 02/15/23 02/17/23 02/17/23 Range/Units 18:45 16:55 16:55 WBC 8.5 (4.5-11.0) X10^3/uL RBC 4.36 (4.0-5.2) X10^6/uL Hgb 12.6 (12.0-16.0) g/dL Hct 37.4 (36-46) % MCV 85.8 (80-100) fL MCH 28.8 (26-34) PG MCHC 33.6 (30-36) % RDW 15.7 H (11.6-14.8) % Plt Count 230 (150-400) X10^3/uL Neut % (Auto) 69.9 (50-75) % Lymph % (Auto) 20.3 L (25-40) % Payette % (Auto) 6.4 (3-14) % Eos % (Auto) 2.2 (2-4) % Baso % (Auto) 1.2 (0-2) % Neut # (Auto) 5900 (0026-6254) /uL Lymph # (Auto) 1700 (7092-5393) /uL Payette # (Auto) 500 (0-900) /uL Eos # (Auto) 200 (0-450) /uL Baso # (Auto) 100 (0-100) /uL PT (10.1-12.7) SECONDS INR (0.9-1.3) APTT (26-36) SECONDS Sodium 137 (137-145) mmol/L Potassium 4.0 (3.4-5.1) mmol/L Chloride 102 (98-107) mmol/L Carbon Dioxide 31 (22-32) mmol/L BUN 17 (7-17) mg/dL Creatinine 0.44 L (0.52-1.04) mg/dL Estimated GFR > 60 (>60) mL/min BUN/Creatinine Ratio 38.6 H (6-22) Glucose 106 H (70-100) mg/dL Calcium 8.4 (8.4-10.2) mg/dL Total Bilirubin 0.8 (0.2-1.3) mg/dL AST 41 H (14-36) IU/L ALT 51 H (<35) IU/L Alkaline Phosphatase 78 (38-126) U/L Total Creatine Kinase (30-135) U/L Troponin I (0.01-0.034) ng/mL Total Protein 6.7 (6.3-8.2) g/dL Albumin 3.6 (3.5-5.0) g/dL Globulin 3.1 (1.7-4.1) g/dL Albumin/Globulin Ratio 1.2 (1.0-2.8) Prolactin (3.0-18.6) ng/mL Salicylates (<20) mg/dL U Opiates 300ng/mL cut Negative (Negative) Ur Oxycodone Screen Negative (Negative) Urine Methadone Screen Negative (Negative) Acetaminophen (10-30) ug/mL Ur Barbiturates Screen Negative (Negative) U Tricyclic Antidepress Negative (Negative) Ur Phencyclidine Scrn Negative (Negative) Ur Amphetamines Screen Negative (Negative) U Methamphetamines Scrn Negative (Negative) Ur MDMA Scrn (Ecstasy) Negative (Negative) U Benzodiazepines Scrn Positive H (Negative) Urine Cocaine Screen Negative (Negative) U Marijuana (THC) Screen Negative (Negative) Ethyl Alcohol ( - 10) mg/dL Chlamy pneumoniae PCR (Not Detect) Adenovirus (PCR) (Not Detect) B. pertussis DNA (PCR) (Not Detecte) B.parapertussis DNA PCR (Not Detecte) Coronavirus OC43 (PCR) (Not Detect) Coronavirus HKU1 (PCR) (Not Detect) Coronavirus 229E (PCR) (Not Detect) SARS-CoV-2 (PCR) (Not Detecte) Coronavirus NL63 (PCR) (Not Detect) Human Metapneumovir PCR (Not Detect) Influenza Type A (PCR) (Not Detect) Influenza Type B (PCR) (Not Detect) M. pneumoniae (PCR) (Not Detect) Parainfluenza 1 (PCR) (Not Detect) Parainfluenza 2 (PCR) (Not Detect) Parainfluenza 3 (PCR) (Not Detect) Parainfluenza 4 (PCR) (Not Detect) RSV (PCR) (Not Detect) Entero/Rhino (PCR) (Not Detect) Point of Care Testing Glucose POC 109 MDM Narrative Medical decision making narrative: Patient brought here by [id number] for headache and generalized body twitching. No history stroke no history of seizure denies any recent illness denies any new medications. Denies any new stressors in life. Last well known 8:00 a.m. today. Patient is awake alert oriented x4. During course of exam she states her left arm and left leg starting feel week. Code stroke was called. During IV access patient did have a generalized tonic-clonic seizure-like activity however she remained awake and was aware of surroundings. Ativan 2 mg intramuscular was ordered. Patient did remain awake during this episode. After history and exam CBC CMP EKG CT stroke/CT angiogram head and neck, Ativan troponin Fish Shabazz [facility] CC: Headache/tremors Complicating co-morbidities: Hypertension diabetes fibromyalgia Data collected from: Patient and [id number] Medical records reviewed: No recent visit for this complaint Differential considered: Includes but not limited to stroke new onset seizure head bleed atypical migraine headache brain tumor Exam documented above, pertinent findings include: Seizure activity Lab Test results independently reviewed as above. Pertinent findings: CBC shows white cell count 11.8, INR 1.0 sodium 141 potassium 3.9 glucose 105 Independently reviewed EKG Imaging studies independently reviewed: CT head CT angiogram head neck no acute finding Consultations: 12:[address] Marquis, radiologist CT head without contrast is unremarkable 12:36 p.m., spoke with [facility] tele stroke, Dr. Truong, at this time no tPA, she will review imaging. 1:16 p.m.. Spoke with [facility] tele stroke, dr truong, no tPA at this time. Recommends MRI brain with and without contrast diffusion weight based, she does agree with Keppra and Ativan at this time Treatments: Keppra Ativan Re-evaluations: 12:[address] scan imaging is able to lay still. Ativan and Keppra was given. Patient following instructions very well. No seizure activity or dystonia or tremors. 12:42 p.m.. Patient resting comfortably, no seizure activity. 1:10 p.m.. 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 2:02 p.m.. Family updated that unable to keep here because due to body habitus unable to do MRI here as well as we do not have neurology services. No recent illness with patient. No cough cold congestion fever chills. No known recent tick bite 4 p.m.. Patient sleeping. During observation of this patient was moving her left arm and her left leg. Discussion: Appropriate for transfer. Patient will need facility that can accommodate for body habitus, larger MRI, will need neurology consult services as well. No spinal tap indicated this time. No fever. No history of tick bite. No rash. Diagnosis: Altered mental status/convulsion February 15, 2023 at 6:00 p.m. Maxwell: Sign out to Dr Barajas, patient here for workup for convulsions new onset seizure versus stroke. However after speaking with tele stroke and Neurology, patient will need MRI, difficulty is finding MRI large enough to accommodate patient's girth. No tPA indicated this time. Awaiting for transfer facility to accommodate. Dr. Barajas-received sign-out from Dr. Barajas I have seen evaluated patient myself. Presents today with concern for seizure versus CVA. Sons are at bedside they report that she was normal yesterday and actually 1 of the sons spoke to her on the phone at around 10:30 a.m. in the morning complaining of severe headache. Questionable like seizure with Jeff's paralysis versus atypical migraine versus CVA. Stroke was consulted no tPA but did recommend MRI. Patient has continued to have some episodes of shaking and convulsions. She has been given a dose of Keppra multiple doses Ativan. I was called to see and evaluate patient after an episode. Nurse reports episode lasted 5-10 seconds she is able to squeeze hands. My concern is for possible pseudoseizures versus other. She is responsive able to hvac technician my hands able to answer some questions but overall appears extremely weak. Patient's abdomen girth is large. With both arms by her side abdominal girth is greater than 80 cm therefore making MRI difficult. Questionable there is a different way to position patient so that she can have an MRI. Spoken with Jenn SALAZAR. I think based on her presentation reasonable to transfer for EEG and full neuro evaluation although I do suspect psych and pseudoseizures. CT and CTA do not show any obvious mass. Blood work is reassuring tox screen negative no evidence of infection. 2152 Dr. Heath, neurologist at [facility] updated patient's symptoms test results. At this time difficult to tell if patient is having nonconvulsive seizures versus other. However based on exam and episodes of convulsing with being quickly alert afterwards in very little postictal he does not think it is status epilepticus which I agree with. He recommends to stop the Keppra. He reports that it MRI would be for completeness sake however it appears that there are no MRIs that the patient would fit in. Recommends repeating a noncontrasted head CT at a 24 hour kasey. She can have an outpatient workup. There is no need to transfer her for an EEG. She does not qualify for continuous monitoring at this time. After family left patient became awake alert oriented. Requesting Jell-O. Glucose was mildly low she was put on dextrose with regular Accu-Cheks. Breakfast is ordered. She is sleeping comfortably. Patient signed out to Dr. Arreola February 16, 2023 at 7:00 a.m.. Sign out from Dr Barajas, she has reviewed with neurologist over the course of the night. At this time recommend repeat CT scan of the head 24 hours after arrival from yesterday. Appropriate for outpatient workup, no need to transfer EEG. Neurologist overnight recommends stopping Keppra. Time 4 p.m.. Spoke with [facility], at this time he agrees patient does not need MRI or EEG and he would be following in consult. They do have psychiatry services and do consult inpatient but not over the phone. Degrees patient could be admitted to the hospitalist group and psychiatry and neurology to follow in consult. Patient at this time does not appear to be in status epilepticus. Given clinic presentation. 4:30 p.m.. Spoke with [facility] Dr. Csaey, neurology, agrees patient does not need MRI or EEG urgently. Patient would benefit observation admission for symptoms, not safe for discharge home. I spoke with hospitalist group, Rohan Steward, he will accept patient at [facility], no beds at this time. Likely tomorrow to help of bed 6:00 p.m.. Maxwell: Sign out to Dr Barajas, patient has been accepted to [facility]. Pending bed availability. tool maintenance worker has seen patient. 02/17/23 05:00 Dr. Barajas-patient signed out to me by Dr. Arreola apparently being placed no problems overnight signed out to Dr. Abreu [id number] 02/17/2023 Discussed with Neuro at [place]. Unable to accept patient due to lack of ability to perform long EEG, strongly suggests to continue to pursue [facility] 1730 - Dr. Roberson will be accepting at [facility]. ALS contacted to [facility] patient for transport to [place] <Alexx Abreu DO - Last Filed: 02/17/23 18:05> Critical Care Time Critical Care Time: Yes Total Critical Care Time: 75 Attestation: The high probability of a clinically significant, sudden or life threatening deterioration of the [Neuro] system(s) required my full and direct attention, intervention and personal management. The aggregate critical care time was [75] minutes. This time is in addition to time spent performing reported procedures but includes the following: [x] Data Review and interpretation [x] Patient assessment and monitoring of vital signs [x] Documentation [x] Medication orders and management Discharge Plan Departure Patient Disposition: [facility] Clinical Impression: Convulsions, Seizure Prescriptions: No Action leflunomide 10 mg tablet 10 mg PO DAILY cetirizine 10 MG tablet 10 mg PO QDAY Qty: 0 omega 4-oho-ihc-fish oil [Fish Oil] 1,000 MG capsule 1,000 mg PO QDAY Qty: 0 acetaminophen 325 mg capsule 325 mg PO Q4H PRN (Reason: Pain) albuterol sulfate [Proventil HFA] 90 mcg/actuation HFA aerosol inhaler 2 puff inhalation Q4-6H PRN (Reason: Asthma) atorvastatin 10 mg tablet 10 mg PO DAILY clobetasol 0.05 % solution 1 applic topical BID Patient Comments: about a month epinephrine [EpiPen] 0.3 mg/0.3 mL auto-injector 0.3 mg IM ONCE PRN (Reason: Anaphylaxis) Rx Instructions: as a single dose fluticasone furoate 50 mcg/actuation blister with device 2 inh inhalation DAILY gabapentin 300 mg capsule 300 mg PO TID PRN (Reason: Pain) ipratropium-albuterol 0.5 mg-3 mg(2.5 mg base)/3 mL solution for nebulization 3 ml inhalation Q4H PRN (Reason: Asthma) Patient Comments: 2 months ketoconazole 2 % shampoo 1 applic topical 2XW PRN (Reason: Rash) omeprazole 40 mg capsule,delayed release(DR/EC) 40 mg PO DAILY pilocarpine HCl [Salagen (pilocarpine)] 5 mg tablet 7.5 mg PO TID Artificial Tears (cmc) 1 % drops 2 drp EYE-BOTH PRN PRN (Reason: Dry Eyes) potassium chloride [Klor-Con 10] 10 mEq tablet extended release 10 meq PO BID propranolol 120 mg capsule,extended release 24 hr 120 mg PO QPM Rx Instructions: HS triamcinolone acetonide 0.1 % cream 1 applic topical BID ondansetron HCl [Zofran] 4 mg tablet 4 mg PO Q8H PRN (Reason: Nausea) amlodipine 2.5 mg tablet 5 mg PO DAILY calcium carbonate-vitamin D3 [Calcium 600 with Vitamin D3] 600 mg(1,500mg) -500 unit capsule 1 cap PO DAILY Jardiance 25 mg tablet 25 mg PO DAILY propranolol 40 mg tablet 40 mg PO QAM Byetta 5 mcg/dose (250 mcg/mL) 1.2 mL pen injector 5 mcg SUBCUT BID Referrals: Snehal Rice MD [Primary Care Provider] -
[2023-02-15] MEDS: LORazepam 2 MG/ML INJ IM (11:45)
[2023-02-15] MEDS: levETIRAcetam 1,000 MG in SODIUM CHLORIDE 0.9% 100 ML 440 MG IV ×2 (11:52→21:23)
[2023-02-15 11:59] LABS: Add Manual Diff / Slide Review NO; Basophils Absolute Auto 100 /uL (0-100); Basophils Percent Auto 0.9 % (0-2); Eosinophils Absolute Auto 200 /uL (0-450); Eosinophils Percent Auto 1.3 % (2-4); Hematocrit 40.5 % (36-46); Hemoglobin 13.1 g/dL (12.0-16.0); Lymphocytes Absolute Auto 2000 /uL (1100-4500); Lymphocytes Percent Auto 16.6 % (25-40); Mean Corpuscular HGB Conc 32.4 % (30-36); Mean Corpuscular Hemoglobin 27.8 PG (26-34); Mean Corpuscular Volume 85.7 fL (80-100); Monocytes Absolute Auto 1000 /uL (0-900); Monocytes Percent Auto 8.8 % (3-14); Neutrophils Absolute Auto 8500 /uL (1500-7000); Neutrophils Percent Auto 72.4 % (50-75); Platelet Count 276 X10^3/uL (150-400); Red Blood Cell Count 4.72 X10^6/uL (4.0-5.2); Red Cell Distribution Width 15.8 % (11.6-14.8); White Blood Cell Count 11.8 X10^3/uL (4.5-11.0)
[2023-02-15 12:03] LABS: Prothrombin Time 11.6 SECONDS (10.1-12.7)
[2023-02-15 12:06] LABS: PTT Partial Thromboplastin Tim 32 SECONDS (26-36)
[2023-02-15 12:08] LABS: Alanine Aminotransferase 43 IU/L (<35); Albumin 4.4 g/dL (3.5-5.0); Albumin Globulin Ratio 1.4 (1.0-2.8); Alkaline Phosphatase 112 U/L (38-126); Aspartate Aminotransferase 37 IU/L (14-36); BUN Creatinine Ratio 24.7 (6-22); Bilirubin Total 0.9 mg/dL (0.2-1.3); Blood Urea Nitrogen 18 mg/dL (7-17); Calcium 10.4 mg/dL (8.4-10.2); Carbon Dioxide 33 mmol/L (22-32); Chloride 100 mmol/L (98-107); Creatine Kinase 43 U/L (30-135); Estimated Glomerular Filt Rate > 60 mL/min (>60); Ethanol (ETOH) < 10 mg/dL; Globulin 3.2 g/dL (1.7-4.1); Glucose 105 mg/dL (70-100); HEMOLYSIS < 15 (0-50); Potassium 3.9 mmol/L (3.4-5.1); Sodium 141 mmol/L (137-145); Total Protein 7.6 g/dL (6.3-8.2)
[2023-02-15] MEDS: LORazepam 2 MG/ML INJ 1 MG IV ×3 (12:08→13:52)
[2023-02-15 12:19] LABS: Troponin I < 0.012 ng/mL (0.01-0.034)
[2023-02-15] MEDS: ACETAMINOPHEN IV 1,000 MG/100 ML VIAL 400 MG IV (14:00)
--- NOTE | 2023-02-15 14:12 | PC.NURSE ---
Per family request pastors at patient bedside.
--- NOTE | 2023-02-15 17:24 | PC.NURSE ---
This nurse pulled 0.5mg IV lorazepam order to give to this patient. Patient actively seizing and has no IV access. Dr. Arreola in the room and gave verbal order to give patient 2mg IM lorazepam. This RN used the vial that was pulled from original order. In the [employer] the vial I pulled and waste of zero entered and note entered explaining this same thing. Provider, pharmacist and charge nurse all informed. Provider in the room as administered.
[2023-02-15 18:32] LABS: Acetaminophen < 10 ug/mL (10-30); Salicylate < 1.0 mg/dL (<20)
[2023-02-15 19:00] LABS: Ur Creatinine Normal (Normal); Ur Specific Gravity Normal (Normal)
[2023-02-15 19:01] LABS: UR Morphine/Opiate cutoff 300 Negative (Negative); Urine Amphetamines Negative (Negative); Urine Barbiturates Negative (Negative); Urine Benzodiazepines Positive (Negative); Urine Cocaine Negative (Negative); Urine MDMA Negative (Negative); Urine Methadone Negative (Negative); Urine Methamphetamines Negative (Negative); Urine Oxycodone Negative (Negative); Urine Phencyclidine Negative (Negative); Urine Tetrahydrocannabinol Negative (Negative); Urine Tricyclic Antidepressant Negative (Negative); Urine pH Normal (Normal)
[2023-02-15 19:57] LABS: Adenovirus Not Detected (Not Detect); B. parapertussis Not Detected (Not Detecte); Bordetella pertussis Not Detected (Not Detecte); Chlamydophila pneumoniae Not Detected (Not Detect); Coronavirus 229E Not Detected (Not Detect); Coronavirus HKU1 Not Detected (Not Detect); Coronavirus NL 63 Not Detected (Not Detect); Coronavirus OC43 Not Detected (Not Detect); Human Metapneumovirus Not Detected (Not Detect); Human Rhinovirus/Enterovirus Not Detected (Not Detect); Influenza A Not Detected (Not Detect); Influenza B Not Detected (Not Detect); Mycoplasma pneumoniae Not Detected (Not Detect); Parainfluenza Virus 1 Not Detected (Not Detect); Parainfluenza Virus 2 Not Detected (Not Detect); Parainfluenza Virus 3 Not Detected (Not Detect); Parainfluenza Virus 4 Not Detected (Not Detect); Respiratory Syncytial Virus Not Detected (Not Detect); SARS- CoV-2 Not Detected (Not Detecte)
--- NOTE | 2023-02-15 20:02 | PC.NURSE ---
Transferred pt into hospital bed. HOB elevated, legs elevated.
--- NOTE | 2023-02-15 20:42 | PC.NURSE ---
At 2017 this nurse was called into the room by patient's family member. Patient's whole body was actively twitching and pt was nonverbal at this time. Patient was able to squeeze her left hand with +1 informatics manager and open her eyes. The twitching of her body lasted [address] Barajas notified at 2019.
--- NOTE | 2023-02-15 20:55 | PC.NURSE ---
Pt was called into the room by family member and family member reports pt takes Byetta 10 units BID for diabetes control. Last taken was this AM. BG checked by this nurse, 86, reported to Dr. Barajas.
[2023-02-15 21:05] LABS: Prolactin 13.5 ng/mL (3.0-18.6)
[2023-02-15] MEDS: DEXTROSE 5%-0.45% NS 1,000 ML 125 ML IV (21:34)
--- NOTE | 2023-02-15 21:47 | PC.NURSE ---
This nurse came into the room to the Keppra IV infusion completed. The patient was holding her left arm completely up in the air. This nurse disconnected the infusion and noticed the midline had come out. Dr. Barajas notified immediately and in the room at 0394
--- NOTE | 2023-02-15 21:58 | PC.NURSE ---
2155 pt drank 120ml apple juice no problems swallowing, no cough.
--- NOTE | 2023-02-15 23:29 | PC.NURSE ---
This nurse in patient's room and patient using her cell phone. Patient then clearly and coherently asked for bernice and states i am hungry, I have not eaten all day. Also, if you find out what hospital I am being sent to, please let me know. Dr. Barajas aware. Bernice provided per Karl verbal approval.
[2023-02-16] VITALS (83 sets, daily range): BP systolic 100–158; BP diastolic 54–86; PULSE 64–103; RESP 17–48; TEMP 36.4–37.4; O2SAT 90–98
[2023-02-16] MEDS: DEXTROSE 5%-0.45% NS 1,000 ML 125 ML IV ×2 (05:34→17:16)
--- NOTE | 2023-02-16 12:00 | DI.CT.S_ITS ---
PROCEDURE: CT HEAD/BRAIN WO CON INDICATIONS: Altered mental status TECHNIQUE: Noncontrast 4.5 mm thick angled axial sections acquired from the foramen magnum to the vertex, with coronal and sagittal reformats. For radiation dose reduction, the following was used: automated exposure control, adjustment of mA and/or kV according to patient size. COMPARISON: [facility], CT, HEAD WITHOUT CONTRAST, 09/02/2010, 10:45. FINDINGS: Image quality: Diagnostic. CSF spaces: Basal cisterns are patent. No extra-axial fluid collections. Ventricles are normal in size and shape. Brain: No midline shift. No intracranial masses or hemorrhage. Regan-white matter interface is normal. Skull and face: Calvarium and visualized facial bones are intact, without suspicious lesions. Sinuses: Visualized sinuses and mastoids are clear. IMPRESSION: Unremarkable intracranial study, without a cause of altered mental status identified. Dictated by: Alexey Nevarez M.D. on 02/16/2023 at 10:54 Approved by: Alexey Nevarez M.D. on 02/16/2023 at 10:55
--- NOTE | 2023-02-16 13:48 | PC.NURSE ---
Addendum entered by Ronna Salomon CNA 02/17/23 09:24: [facility] called and spoke with this OPERATION SUPERVISOR about any updates regarding pt. notified Libyan no new updates and that pt. was on wait lists at other hospitals as well as dispatching [facility]. Libyan will call back if there are any new updates. Original Note: OPERATION SUPERVISOR note: notified [facility] no longer need MRI but facility with neuro as per at 13:30
--- NOTE | 2023-02-16 14:35 | PC.NURSE ---
Patient has had large amount of family visitors throughout the day. Upon this RN entering the room and asking for the family to step out to the lobby. Patient immediately began shaking throughout her body. The provider entered the room at that time to talk to the patient. Patient was making gagging sounds and this RN suctioned patient mouth without any fluids coming up. Provider reassured patient and held conversation with the patient. Patient able to speak throughout shaking episode. Patient stopped shaking without any medication administration. Patient asked this RN to minimize outside stimulus. Family informed.
--- NOTE | 2023-02-16 14:40 | CM.SWNOTE ---
ED JOINT YARNER Assessment Note Patient is 52 y/o female who presents to ED yesterday due to concern for ticks and muscle spasms. Patient receives seizure and stroke work up in ED, patient is unable to get MRI due to patient's weight. At this time, ED provider is seeking transfer for patient with neurology. Patient's PCP is Dr. Rice at [facility], patient endorses that she sees neurologist Dr. Wells at [facility] as well. Patient endorses she also sees a solar project coordination specialist, rhumetologist and other specialists. Patient has [facility] Healthy Options insurance. Patient has hx of convulsions, GI bleed, atypical chest pain, Asthma exacerbation and heart palpitations. At this time ED provider is concerned for patient's altered mental status and trying to rule out pseudoseizures and the cause of this presentation. All CT scans present as unremarkable. Previously, patient has had a room full of family members. When RN entered room to clear family members from room patient presented with convulsions and presented with difficulty breathing, ED provider enters room to observe. JOINT YARNER enters room to meet with patient privately. Patient presents with tremors, body shaking and presents with fragmented speech. When asked about A/O, patient states its MondayFebruary 13. Patient presents as A/O to place, self, person and situation. Patient endorses she resides with Mother and Father in Law in [place]. 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 Patient endorses she started experiencing increase in tremors yesterday when at work. Patient endorses hx of minor tremors but this was worse than normal. Patient denies hx of seizures. Patient denies anything out of the ordinary that occurred the day prior or weeks prior. Patient denies life stressors, patient endorses she feels safe and supported at home, patient denies need for psychiatrist or counselor. Patient endorses she is independent with ADLs and drives at baseline. Patient states this sucks I am very active...this is not normal. Patient endorses she takes several rx and all records of this can be found through [facility]. Patient denies any questions or anything further that she would like to share with JOINT YARNER. JOINT YARNER receives the above with ED provider and suggests requesting records from [facility] and consulting with patient's Neurologist at [facility]. Plan: ED provider continuing to seek transfer for patient for altered mental status with neurologist. Yola Anderson, VACATION GUIDE
--- NOTE | 2023-02-16 19:14 | PC.NURSE ---
This patient had 2.5 min episode of shaking at 1820. Patient immediately after the 2.5 opened her eyes and requested Ice water. Patient shaking became minimal tick like movements afterwards.
--- NOTE | 2023-02-16 20:23 | PC.NURSE ---
Pt continues to have slow delayed speech when conversing with this RN. Body tremors noted, stopped when this RN performing accucheck. Pt able to articulate wants and needs. Pt ate 100% of dinner. Blood sugar check 132. Provider made aware, orders to discontinue d5 0.45% NS at this time, see MAR. Call light remains within reach of patient. Pt also able to move left arm up to forehead to adjust wet wash cloth. Pt denies any other needs at this time.
[2023-02-17] VITALS (47 sets, daily range): BP systolic 128–186; BP diastolic 61–106; PULSE 66–104; RESP 17–35; TEMP 36.6–37.2; O2SAT 92–97; BMI 63.0
[2023-02-17] MEDS: ENOXAPARIN 40 MG/0.4 ML SYRINGE SUBCUT (07:59)
[2023-02-17] MEDS: AMLODIPINE 5 MG TABLET 2.5 MG PO (08:06)
--- NOTE | 2023-02-17 10:47 | PC.NURSE ---
Addendum entered by Ronna Salomon CNA 02/17/23 10:54: checked on pt. This FEDERAL AIR MARSHAL assisted with pt. damián-care, and help off bedside commmode. pt. is sitting comfortably in hospital bed. call light within reach Original Note: FEDERAL AIR MARSHAL note: This FEDERAL AIR MARSHAL assisted pt. out of bed with the use of walker for stability purposes. pt. requested bed linen change. pt. was able to stand and pivot to a blanket covered folding chair and use wipes to clean themselves. This FEDERAL AIR MARSHAL with the assistance of Yuan Marquez CNA wiped down hospital bed with sani-wipes and changed the linen on the hospital bed. pt. requested bedside commode at that time. JANAY Bolden retrieved bedside commode. pt. requested privacy while on the commode. left pt. with call light and encouraged pt. to use if they needed assistance.
--- NOTE | 2023-02-17 12:45 | DI.CT.S_ITS ---
PROCEDURE: CT HEAD/BRAIN W CON INDICATIONS: per neuro, TECHNIQUE: 4.5 mm thick angled axial sections acquired from the foramen magnum to the vertex after the administration of intravenous contrast, with coronal and sagittal reformats. For radiation dose reduction, the following was used: automated exposure control, adjustment of mA and/or kV according to patient size. COMPARISON: None. FINDINGS: Image quality: Excellent. CSF Spaces: Basal cisterns are patent. No extra-axial fluid collections. Ventricles are normal in size and shape. Brain: No midline shift. No intracranial bleeds or masses. No abnormal intracranial enhancement. Regan-white interface appears normal. Skull and face: Calvarium and visualized facial bones appear intact, without suspicious lesions. Sinuses: Visualized sinuses and mastoids are clear. IMPRESSION: No acute intracranial pathology. Dictated by: Vernon Parks M.D. on 02/17/2023 at 13:27 Approved by: Vernon Parks M.D. on 02/17/2023 at 13:29
--- NOTE | 2023-02-17 13:51 | PC.NURSE ---
[facility] declined acceptance.
--- NOTE | 2023-02-17 14:05 | PC.NURSE ---
after repositioning in bed, pt started shaking. with a calm voice. pt was able to calm . asked me to suction her mouth. scant secretions. she was able to hold her arm up during this episode. did not appear to be a stroke at all. Dr. Abreu aware of the above
--- NOTE | 2023-02-17 15:09 | PT.IIE ---
Surgical History (Last Reviewed 02/15/23 @ 11:52 by German Arreola MD) H/O section H/O tubal ligation History of hysterectomy History of tonsillectomy and adenoidectomy Hx of cholecystectomy Medical History (Last Reviewed 02/15/23 @ 11:52 by German Arreola MD) Asthma Diabetes Edema Fibromyalgia HTN (hypertension) Hyperlipidemia (normal spontaneous vaginal delivery) Sinus tachycardia Sjogren's disease Sleep apnea Physical Therapy Inpatient Evaluation/Re-Eval M1 PT/OT-IP Prior Functional Status Start: 02/17/23 13:01 Freq: Status: Active Protocol: Document 02/17/23 14:00 MB (Rec: 02/17/23 15:09 MB [id number]) Medical Review Prior Functional Status Medical History Reviewed Yes Diet/Fluid Consistency Regular Communication WNLs Mobility and Gait I Activities of Daily Living and IADL's I Prior Functional Level (Other details) I, lived with her in-laws in [place] and 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 There is one entrance with five steps and wide railings and one ramped entrance. Pt lives with her in-laws. Her children are grown. Her spouse does not live with her and her in-laws and neither she nor MIL provide details. 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 Additional Social History Comment Pt, MIL and her friend state that pt has access to DME that was her late mother's that is in storage M2 PT-IP Current Condition Start: 02/17/23 13:01 Freq: Status: Active Protocol: Document 02/17/23 14:00 MB (Rec: 02/17/23 15:09 MB [id number]) Physical Therapy Current Condition Current Condition Evaluation Date 02/17/23 Treatment Diagnosis Not yet determined, possible pseudoseizures Onset Date Several days M3 PT-IP Subjective Start: 02/17/23 13:01 Freq: Status: Active Protocol: Document 02/17/23 14:00 MB (Rec: 02/17/23 15:09 MB [id number]) Subjective Physical Therapy Visit Type Type Initial Evaluation Visit Start Time 14:00 Visit Stop Time 14:40 Total Visit Minutes 40 Number of STOVE INSTALLER Visits 0 Physical Therapy Visit Comments Patient Comments Pt with stutter and slow speech and can answer all questions accurately. Does not make casual conversation, MIL and her friend are conversive and answer many questions. Patient Goals To go home Therapy Pain Assessment Pain When Pain Assessed At Rest Pain Present Pain Present Denied Pain M4 PT-IP Mobility and Gait Start: 02/17/23 13:01 Freq: Status: Active Protocol: Document 02/17/23 14:00 MB (Rec: 02/17/23 15:09 MB [id number]) PT-Bed Mobility Assessment Rolling Type of Rolling Roll to Left Level of Assist Standby Assistance,1 Person Assistance Supine to Sit Supine to Sit Standby Assistance,1 Person Assistance,Head of Bed Elevated,Bedrails Scooting Scooting to Edge of Bed Standby Assistance PT-Transfer Assessment Sit to and From Stand Sit to and from Stand Contact Guard Assistance,1 Person Assistance,Use of Upper Extremities Equipment Transfer Assistive Device Gait Belt,Front Wheeled Walker Orthotic/Prosthetic Devices or Brace: No Transfers Transfer Destination Chair Transfer Technique Stand Step Pivot Transfer Ability Level of Assist Contact Guard Assistance,1 Person Assistance,Use of Upper Extremities Gait Assessment Gait Gait Assistance Required: Contact Guard Assist,1 Person Assist Distance (Feet) 2 Assistive Devices Assistive Device Gait Belt,Front Wheeled Walker Orthotic/Prosthetic Devices or Brace: No Gait Deviations General Gait Pattern Decreased Stride Length,Flexed Trunk,Wide Based Gait Factors Limiting Gait Function Factors Limiting Gait Function Decreased Strength,Poor Balance Comments Gait Comments Pt takes a few steps to the left to recliner with RW and CGA. She has wide CIERA and foot clearance. Pt has multiple lines and so longer gait is not possible this afternoon. Also, pt and family reporting seizures and shaking and so not safe to gait pt further given weakness and imbalance and high fall risk if she has a seizure when up. She states her head starts hurting and she feels cold before a seizure and so she might be able to communicate when she needs to sit quickly. PT-Balance Assessment Sitting Balance and Reactions Static Sitting Balance Ability Good Dynamic Sitting Balance Ability Fair Standing Balance and Reactions Static Standing Balance Ability Fair Dynamic Standing Balance Ability Fair Device Used RW M5 PT-IP Objective Assessments Start: 02/17/23 13:01 Freq: Status: Active Protocol: Document 02/17/23 14:00 MB (Rec: 02/17/23 15:09 MB [id number]) Orientation Orientation/Cognition Level of Alertness Alert Orientation Name,Age,Birthday,Month,Place, Situation Safety Awareness Understands Safety Issues Memory Description No Deficits Noted Comments Pt with stuttering-type speech , delayed verbal responses and she answers all questions correctly Gross Range of Motion Lower Extremity ROM Assessment Left Impaired Impairments Decreased left ankle DF and great toe extension, pt cannot lift left LE up off the foot of chair in reclined position Strength Upper Extremity Strength Assessment Left Impaired Hand 2/10 technical developer Lower Extremity Strength Assessment Left Impaired Ankle DF and great toe extension 2+/ 5 Comments Strength Comments Pt does not tolerate/ participate well with strength testing for LE this date. PT only checks technical developer strength for UEs today. Defer UE assessment to OT. Coordination Assessment Assessment Coordination Comments Pt does not tolerate coordination testing this date Sensation Assessment Sensation Gross Sensation Left LE Impaired Comments Sensation Comments Pt reports decreased sensation to light touch LLE M7 PT-IP Assessment and Plan Start: 02/17/23 13:01 Freq: Status: Active Protocol: Document 02/17/23 14:00 MB (Rec: 02/17/23 15:09 MB [id number]) PT Summary Assessment and Plan Potential Rehabilitation Potential Fair Status of Condition at Evaluation Evolving Summary Impairments ROM,Strength,Balance, Coordination,Sensation,Bed Mobility,Transfers,Gait, Activity Tolerance Progress Towards Goals Slow Progress due to Activity Tolerance Assessment Summary Pt is a 52 y/o female awaiting possible transfer to [facility] d/t work up for seizures/ pseudoseizures. Pt does not have headache or spasming during PT consult. Her MIL and her friend are very conversant during assessment and pt herself answers all questions correctly and does have a speech delay and stutter that is very consistent. If she is going to transfer hospitals, OT assessment may be deferred. If she stays at this hospital, she may benefit from OT for cognitive assessment when family is out of the room as well as OT to fully assess UE function and coordination as well as ADL potential. Pt does present with left technical developer and LE weakness and decreased balance with minimal stepping today with RW. Pt has many lines and so increased gait distance is not assessed. Also , hospital notes of pt having seizures and shaking all over and it is not currently safe to gait train pt too far d/t she could have an event when up on her feet and this could be injurious to her or staff. On assessment, PT is unable to determine if weakness is organic in nature or not. Goals Bed Mobility Goal Independent Transfer Goal Independent,Front Wheeled Walker Gait Goal Independent,Front Wheel Walker Gait Distance 50 Days to Meet Goals 5 Frequency of Treatment Frequency Of Treatment Once a Day Treatment Plan Physical Therapy Treatment Plan Bed Mobility Training,Transfer Training,Gait Training, Therapeutic Exercise,Balance Retraining,Discharge Planning, Neuromuscular Re-ed, Coordination Retraining Recommendations To Nursing Amount of Assist Needed 1 Person Assist Discharge Recommendations PT Discharge Recommendations Home with 13/02 Assist Available,Home Health,Home vs SNF Other Discharge Recommendations Pt may d/c to larger hospital for full neuro work-up and so d/c recommendations are premature. Transportation Needs at Discharge Wheelchair/Cabulance
--- NOTE | 2023-02-17 15:25 | PC.NURSE ---
Received request from [facility] to sign a 'Transfer Back Agreement which states that the transferring facility and the referring physician agree to accept the patient in return transfer upon reasonable notice to do so. Discussed w/ ED director and at this time the ED would be unable to sign. Called [facility] transfer center and discussed w/ Christina who stated it was [facility] Neuro that wants this. I told her that pt lives independently w/ family in the community and has been seen by [facility]. Pt is not suicidal or homicidal. She states that she will discuss with neurology but not matter what their decision is there is no bed for pt at this time. ED provider aware.
--- NOTE | 2023-02-17 16:34 | PC.NURSE ---
Called [facility] for additional support. Spoke w/ Kendy. They are aware of the case and will work on it.
--- NOTE | 2023-02-17 17:00 | PC.NURSE ---
lab attempted x 2 for blood work. I was able to draw some blood via her iv line
[2023-02-17 17:11] LABS: Add Manual Diff / Slide Review NO; Basophils Absolute Auto 100 /uL (0-100); Basophils Percent Auto 1.2 % (0-2); Eosinophils Absolute Auto 200 /uL (0-450); Eosinophils Percent Auto 2.2 % (2-4); Hematocrit 37.4 % (36-46); Hemoglobin 12.6 g/dL (12.0-16.0); Lymphocytes Absolute Auto 1700 /uL (1100-4500); Lymphocytes Percent Auto 20.3 % (25-40); Mean Corpuscular HGB Conc 33.6 % (30-36); Mean Corpuscular Hemoglobin 28.8 PG (26-34); Mean Corpuscular Volume 85.8 fL (80-100); Monocytes Absolute Auto 500 /uL (0-900); Monocytes Percent Auto 6.4 % (3-14); Neutrophils Absolute Auto 5900 /uL (1500-7000); Neutrophils Percent Auto 69.9 % (50-75); Platelet Count 230 X10^3/uL (150-400); Red Blood Cell Count 4.36 X10^6/uL (4.0-5.2); Red Cell Distribution Width 15.7 % (11.6-14.8); White Blood Cell Count 8.5 X10^3/uL (4.5-11.0)
[2023-02-17 17:28] LABS: Alanine Aminotransferase 51 IU/L (<35); Albumin 3.6 g/dL (3.5-5.0); Albumin Globulin Ratio 1.2 (1.0-2.8); Alkaline Phosphatase 78 U/L (38-126); BUN Creatinine Ratio 38.6 (6-22); Bilirubin Total 0.8 mg/dL (0.2-1.3); Blood Urea Nitrogen 17 mg/dL (7-17); Calcium 8.4 mg/dL (8.4-10.2); Carbon Dioxide 31 mmol/L (22-32); Chloride 102 mmol/L (98-107); Estimated Glomerular Filt Rate > 60 mL/min (>60); Globulin 3.1 g/dL (1.7-4.1); Glucose 106 mg/dL (70-100); Sodium 137 mmol/L (137-145); Total Protein 6.7 g/dL (6.3-8.2)
--- NOTE | 2023-02-17 17:41 | PC.NURSE ---
RV REPAIRER Note - Shiva Alvarez updated about patient's ETA. Shiva told us here at [facility] that the bed will be ready
[2023-02-17] MEDS: DOCUSATE 100 MG CAPSULE PO (18:04)
[2023-02-17 18:12] LABS: HEMOLYSIS 118 (0-50)
[2023-02-17 18:13] LABS: Aspartate Aminotransferase 41 IU/L (14-36)
== END 2023-02-17 18:35 | disposition short-term general hospital (02) ==
PROVIDERS: Emergency Medicine; Emergency Provider Emergency Medicine; PCP Internal Medicine Geriatric Medicine
DX: G40.909 Epilepsy, unspecified, not intractable, without status epilepticus (principal); R29.707 NIHSS score 7; Z20.822 Contact with and (suspected) exposure to COVID-19; Z79.899 Other long term (current) drug therapy; R79.89 Other specified abnormal findings of blood chemistry
CPT/HCPCS: 36415; 70450; 70460; 70496; 70498; 80053; 80305; 80320; 80329; 82550; 82962; 84146; 84484; 85025; 85610; 85730; 87633; 96365; 96366; 96367; 96372; 96375; 96376; 97162; 99285; 99291; G0480; J0131; J1650; J1953; J2060; Q9967